=== PATIENT | male | born 2000 | race African-American/Black ===

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

== ENCOUNTER 2023-07-27 11:51 | Emergency (ER) | payer MEDICAID, OTHER ==
[~2023-07-27 11:51] MED LIST changes: +MONT4CHW74; -MONT4CHW9
== END 2023-07-27 13:58 | disposition left against medical advice (07) ==
LOC: ER 11:51
DX: R06.02 Shortness of breath (principal); Z53.21 Procedure and treatment not carried out due to patient leaving prior to being seen by health care provider

== ENCOUNTER 2024-03-12 06:38 | Inpatient (IN) | payer MEDICAID, OTHER ==
[~2024-03-12] VITALS: Ht 172.7 cm; Wt 74.0 kg
[2024-03-12] VITALS (14 sets, daily range): BP systolic 114–134; BP diastolic 60–82; PULSE 24–145; RESP 15–95; TEMP 98.2–99; O2SAT 91–99
--- NOTE | 2024-03-12 06:44 | ED.PDOC ---
SOB-HPI HPI Comments 29M BIBA w/ prior Hx of asthma which may be associated to the c/c of SOB. EMS report the pt has been having SOB since yesterday and worsened today. EMS state the pt does having a machoine at home but is not helping. Pt on scene had a SAT of 92% RA and was given a breathing Trx en rout and is currently at 95%. EMS note the pt having wheezing sounds on both lungs. Social Hx of Second hand on tobacco but denies alcohol and substance use. Denies chills, fever, N/V/D, CP or other associated symptoms, modifiers, or recent injuries at this time. Time Seen by MD: 06:40 Primary Care Provider: LUIS ANGEL Reviewed notes: Nurses Notes, Dry House Attendant Notes, Medications, Allergies Information Source: Patient, Emergency Med Personnel Mode of Arrival: EMS Severity: Moderate Timing: Hours Duration: Since onset, Hours Context: At Rest PE Risk Factors: None History of: Asthma Prehospital treatment: Breathing Tx Associated Signs and Symptoms: Wheeze If cough with SOB: Non-Productive Past Medical History PAST MEDICAL HISTORY: Asthma Surgical History: Denies all surgeries Family History Family History: No family hx of Lung avril, Unknown Social History Smoker: Secondhand Alcohol: Denies ETOH Use Drugs: Denies Drug Use Lives In: Home Constitutional: denies: chills, diaphoresis, fatigue, fever, malaise, sweats, weakness, others EENTM: denies: blurred vision, double vision, ear bleeding, ear discharge, ear drainage, ear pain, ear ringing, eye pain, eye redness, hearing loss, mouth pain, mouth swelling, nasal discharge, nose bleeding, nose congestion, nose pain, photophobia, tearing, throat pain, throat swelling, voice changes, others Respiratory: reports: SOB at rest, shortness of breath, wheezing; denies: cough, hemoptysis, orthopnea, SOB with excertion, stridor, others Cardiovascular: denies: chest pain, dizzy spells, diaphoresis, Dyspnea on exertion, edema, irregular heart beat, left arm pain, lightheadedness, palpitations, PND, syncope, others Gastrointestinal: denies: abdomen distended, abdominal pain, blood streaked bowels, constipated, diarrhea, dysphagia, difficulty swallowing, hematemesis, melena, nausea, poor appetite, poor fluid intake, rectal bleeding, rectal pain, vomiting, others Genitourinary: denies: burning, dysuria, flank pain, frequency, hematuria, incontinence, penile discharge, penile sore, pain, testicle pain, testicle swelling, urgency, others Neurological: denies: dizziness, fainting, headache, left sided numbness, left sided weakness, numbness, paresthesia, pre-existing deficit, right sided numbness, right sided weakness, seizure, speech problems, tingling, tremors, weakness, others Musculoskeletal: denies: back pain, gout, joint pain, joint swelling, muscle pain, muscle stiffness, neck pain, others Integumetry: denies: bruises, change in color, change in hair/nails, dryness, laceration, lesions, lumps, rash, wounds, others Allergic/Immunocompromised: denies: Difficulty Healing, Frequent Infections, Hives, Itching, others Hematologic/Lymphatic: denies: anemia, blood clots, easy bleeding, easy bruising, swollen glands, others Endocrine: denies: excessive hunger, excessive sweating, excessive thirst, excessive urination, flushing, intolerance to cold, intolerance to heat, unexplained weight gain, unexplained weight loss, others Psychiatric: denies: anxiety, bipolar disorder, depression, hopeless, panic disorder, schizophrenia, sleepless, suicidal, others All Other Systems: Reviewed and Negative Physical Exam General Appearance: Moderate Distress HEENT: Normal ENT Inspection, Pharynx Normal, TMs Normal Neck: Full Range of Motion, Non-Tender, Normal, Normal Inspection Respiratory: Chest Non-Tender, Decreased Breath Sounds, Lungs Clear, No Accessory Muscle Use, Respiratory Distress, Wheezing Cardiovascular: No Edema, No JVD, No Murmur, No Gallop, Tachycardia Breast Exam: Deferred Gastrointestinal: No Organomegaly, Non Tender, No Pulsatile Mass, Normal Bowel Sounds, Soft Genitalia: Deferred Pelvic: Deferred Rectal: Deferred Extremities: No calf tenderness, Normal capillary refill, Normal inspection, Normal range of motion, Non-tender, No pedal edema Musculoskeletal : Apperance: Normal Neurologic: Alert, technology architect II-XII nml as Tested, No Motor Deficits, Normal Affect, Normal Mood, No Sensory Deficits Cerebellar Function: Normal Reflexes: Normal Skin: Dry, Normal Color, Warm Lymphatic: No Adenopathy Was a procedure done? Was a procedure done?: No Differential Dx Differential Diagnosis: Asthma, Bronchitis, Pneumonia X-Ray, Labs, Meds, VS Vital Signs Date Time Temp Pulse Resp B/P (MAP) Pulse Ox O2 Delivery O2 Flow Rate FiO2 03/12/24 10:14 22 94 Room Air* 0 21 03/12/24 07:55 146 03/12/24 07:49 24 24 98 Nasal Cannula* 2 28 03/12/24 07:49 152 24 123/57 (79) 97 03/12/24 07:33 24 94 Nasal Cannula* 2 28 03/12/24 07:01 22 100 Simple Mask* 8 60 03/12/24 06:51 98.2 132 26 124/57 (79) 97 Lab Test 03/12/24 07:50 03/12/24 06:55 Range/Units Influenza Type A Antigen Negative Negative Influenza Type B Antigen Negative Negative SARS-CoV-2 Antigen (Rapid) Negative NEGATIVE White Blood Count 6.8 4.4-10.8 10^3/uL Red Blood Count 5.05 4.5-5.90 10^6/uL Hemoglobin 15.5 13.5-17.5 g/dL Hematocrit 45.4 41.0-53.0 % Mean Corpuscular Volume 89.8 80.0-100.0 fL Mean Corpuscular Hemoglobin 30.8 28.0-32.0 pg Mean Corpuscular Hemoglobin Concent 34.3 32.0-36.0 g/dL Red Cell Distribution Width 13.4 11.8-14.3 % Platelet Count 279 140-450 10^3/uL Mean Platelet Volume 7.9 6.9-10.8 fL Neutrophils (%) (Auto) 90.9 H 37.0-80.0 % Lymphocytes (%) (Auto) 5.2 L 10.0-50.0 % Monocytes (%) (Auto) 3.4 0.0-12.0 % Eosinophils (%) (Auto) 0.1 0.0-7.0 % Basophils (%) (Auto) 0.4 0.0-2.0 % Neutrophils # (Auto) 6.2 1.6-8.6 10 ^3/uL Lymphocytes # (Auto) 0.4 0.4-5.4 10 ^3/uL Monocytes # (Auto) 0.2 0-1.3 10 ^3/uL Eosinophils # (Auto) 0 0-0.8 10 ^3/uL Basophils # (Auto) 0 0-0.2 10 ^3/uL Nucleated Red Blood Cells 0.2 % Sodium Level 139 136-145 mmol/L Potassium Level 3.5 3.5-5.1 mmol/L Chloride Level 106 98-107 mmol/L Carbon Dioxide Level 19 L 20-31 mmol/L Anion Gap 14 5-15 Blood Urea Nitrogen 12 9-23 mg/dL Creatinine 1.20 0.700-1.30 mg/dL Glomerular Filtration Rate Calc 88 >90 mL/min BUN/Creatinine Ratio 10.0 10.0-20.0 Serum Glucose 167 H 74-106 mg/dL Calcium Level 10.1 8.7-10.4 mg/dL Current Medications Medications (Trade) Dose Ordered Sig/An Route Start Time Stop Time Status Last Admin Methylprednisolone Sodium Succinate (Solu Medrol) 125 mg ONCE ONCE IV 03/12/24 06:45 03/12/24 06:46 DC 03/12/24 07:10 Ipratropium [place] (Atrovent Medneb) 1 mg ONCE ONCE N 03/12/24 06:45 03/12/24 06:46 DC 03/12/24 07:01 Albuterol (Ventolin Medneb) 10 mg ONCE ONCE N 03/12/24 06:45 03/12/24 06:46 DC 03/12/24 07:01 Albuterol (Ventolin Medneb) 10 mg ONCE ONCE NEB 03/12/24 07:28 03/12/24 07:29 DC 03/12/24 07:33 Magnesium Sulfate/ Dextrose 100 ml @ 100 mls/hr Q1H IV 03/12/24 07:30 03/12/24 09:29 DC 03/12/24 09:24 Ondansetron HCl (Zofran) 4 mg ONCE ONCE IV 03/12/24 08:00 03/12/24 08:01 DC 03/12/24 08:08 Albuterol (Ventolin Medneb) 20 mg ONCE ONCE NEB 03/12/24 10:00 03/12/24 10:01 DC 03/12/24 10:14 IV Hep-Lock was established The patient was given Solu-Medrol 125 mg IV push The patient was given a continuous breathing treatment of albuterol and Atrovent with no significant relief. The patient was then started on Mag sulfate. The patient has a repeat albuterol and Atrovent placed. The CBC is within normal limits The chemistry panel is within normal limits The COVID test is negative The influenza a and influenza B are negative At this time, the patient was being admitted to the hospitalist The patient was having a significant amount of shortness a breath but he is making some progress. Patient was admitted at this time. Images Reviewed?: Images reviewed and evaluated by me Time of 1ST Reevaluation: 07:10 Reevaluation 1ST: Unchanged Patient Education/Counseling: Diagnosis, Treatment, Prognosis Family Education/Counseling: No Family Present Departure 1 Departure Time of Disposition: 10:36 Impression: Primary Impression: Status asthmaticus Qualified Codes: J45.52 - Severe persistent asthma with status asthmaticus Additional Impression: Acute respiratory failure Qualified Codes: J96.00 - Acute respiratory failure, unspecified whether with hypoxia or hypercapnia Disposition: ADMITTED INPATIENT Admit to: Tele Condition: Fair Critical Care Note Critical Care Time?: Yes (35 min-critical care time only) Stability Stability form required: Yes Unstable for transfer: Telemetry monitoring (Telemetry monitoring required), ED Physician Assesment (Clinical assesment) Heart Score Heart Score: Heart Score Response (Comments) Value History N/A 0 EKG N/A 0 Age N/A 0 Risk Factors N/A 0 Troponin N/A 0 Total 0 I personally scribed for SHON LEO MD ([email or web address]) on 03/12/24 at 06:44. Electronically submitted by Huy Magaña ([email or web address]). SHON LEO MD Mar 12, 2024 06:44
[2024-03-12] MEDS: IPRATROPIUM BROM 0.5 MG/2.5ML INH SOL HHN ONE (07:01)
[2024-03-12] MEDS: ALBUTEROL SULF 2.5 MG/0.5ML(0.5%) NEB SOLN HHN ONE (07:01)
[2024-03-12 07:04] LABS: Basophils # (auto) 0 10 ^3/uL (0-0.2); Basophils % (auto) 0.4 % (0.0-2.0); Eosinophils # (auto) 0 10 ^3/uL (0-0.8); Eosinophils % (auto) 0.1 % (0.0-7.0); Hematocrit 45.4 % (41.0-53.0); Hemoglobin 15.5 g/dL (13.5-17.5); Lymphocytes # (auto) 0.4 10 ^3/uL (0.4-5.4); Lymphocytes % (auto) 5.2 % (10.0-50.0); Mean Corpuscular Hemoglobin 30.8 pg (28.0-32.0); Mean Corpuscular Hgb Conc. 34.3 g/dL (32.0-36.0); Mean Corpuscular Volume 89.8 fL (80.0-100.0); Monocytes # (auto) 0.2 10 ^3/uL (0-1.3); Monocytes % (auto) 3.4 % (0.0-12.0); Neutrophils # (auto) 6.2 10 ^3/uL (1.6-8.6); Neutrophils % (auto) 90.9 % (37.0-80.0); Nucleated Red Blood Cells % 0.2 %; Platelet Count (auto) 279 10^3/uL (140-450); Red Blood Cells 5.05 10^6/uL (4.5-5.90); Red Cell Distribution Width 13.4 % (11.8-14.3); White Blood Cell 6.8 10^3/uL (4.4-10.8)
[2024-03-12] MEDS: methylPREDNISolone SOD SUCC 125 MG/2 ML VL IV ONE (07:10)
[2024-03-12 07:15] LABS: Chloride 106 mmol/L (98-107); Potassium 3.5 mmol/L (3.5-5.1); Sodium 139 mmol/L (136-145)
[2024-03-12 07:16] LABS: Anion Gap 14 (5-15); Calcium 10.1 mg/dL (8.7-10.4); Carbon Dioxide 19 mmol/L (20-31)
[2024-03-12 07:21] LABS: Blood Urea Nitrogen 12 mg/dL (9-23); Glucose 167 mg/dL (74-106)
[2024-03-12] MEDS ORDERED: ALBUTEROL SULF 2.5 MG/0.5ML(0.5%) NEB SOLN HHN ONE (07:30)
[2024-03-12] MEDS: ALBUTEROL SULF 2.5 MG/0.5ML(0.5%) NEB SOLN NEB ONE ×2 (07:33→10:14)
[2024-03-12] MEDS: ALBUTEROL SULF 2.5 MG/0.5ML(0.5%) NEB SOLN ONE (07:34)
[2024-03-12] MEDS: MAGNESIUM SULFATE 1GM/100ML 100 ML IV SCH (08:03)
[2024-03-12] MEDS: ONDANSETRON HCL 4 MG/2 ML VIAL IV ONE (08:08)
[2024-03-12 08:57] LABS: Rapid Influenza A Negative (Negative); Rapid Influenza B Negative (Negative)
[2024-03-12 08:58] LABS: COVID19 ANTIGEN SOFIA FIA NEGATIVE (NEGATIVE)
[2024-03-12] MEDS ORDERED: IPRATROPIUM BROM 0.5 MG/2.5ML INH SOL NEB PRN (10:15)
--- NOTE | 2024-03-12 10:21 | DVH ---
CHEST RADIOGRAPH Indication:sob Technique: Single frontal view of the chest was obtained COMPARISON: None FINDINGS: Lines and Tubes: None Lungs: Clear Pleura: No effusion. No pneumothorax. Cardiomediastinal contours: Unremarkable Bones: Unremarkable IMPRESSION: 1. No acute disease.
--- NOTE | 2024-03-12 10:22 | DVHHP2 ---
History of Present Illness Reason for Visit: Shortness of breath History of Present Illness This 29-year-old male with past medical history of asthma presents in the ED via EMS with a chief complaint of shortness of breath. Patient reports progressive shortness of breath started two days ago, despite of breathing treatment continued to have shortness of breath for which prompted the patient to call 911. The patient reports symptoms is associated with productive cough. Denies fever, chills, chest pain, or other acute symptoms. Denies tobacco, illicit drug, or ETOH use. Past Medical History Asthma Past Surgical History Denies Family History Reviewed, non-contributory to the management of this case. Past Social History The patient lives at home, denies smoking, alcohol or illicit drugs abuse. Review of Systems Constitutional: Yes: Malaise; No: Fever, Chills, Sweats, Weakness, Other Eyes: No: Pain, Vision change, Conjunctivae inflammation, Eyelid inflammation, Other, Redness ENT: No: Ear pain, Ear discharge, Nose pain, Nose discharge, Nose congestion, Mouth pain, Mouth swelling, Throat pain, Throat swelling, Other Respiratory: Cough, Shortness of breath, Wheezing; No: Dry, SOB with excertion, Hemoptysis, Pleuritic Pain, Sputum, Wheezing, Other Cardiovascular: No: Chest Pain, Palpitations, Orthopnea, Paroxysmal Noc. Dyspnea, Edema, Lt Headedness, Other Genitourinary: No Dysuria, No Frequency, No Incontinence, No Hematuria, No Retention, No Other Musculoskeletal: No: other, neck pain, shoulder pain, arm pain, back pain, hand pain, leg pain, foot pain Skin: No: Rash, Lesions, Jaundice, Bruising, Other Neurological: No: Weakness, Numbness, Incoordination, Change in speech, Confusion, Seizures, Other Allergies: Coded Allergies: Tomato (Verified Allergy, Unknown, 09/11/20) Exam Vital Signs Vital Signs Date Time Temp Pulse Resp B/P (MAP) Pulse Ox O2 Delivery O2 Flow Rate FiO2 03/12/24 07:55 146 03/12/24 07:49 24 98 Nasal Cannula* 2 28 03/12/24 07:49 123/57 (79) 03/12/24 06:51 98.2 General Appearance: Alert, Oriented X3, mild distress HEENT: Atraumatic, PERRLA, EOMI Respiratory: Other (Wheezing) Cardiovascular: Regular rate, Normal S1, Normal S2 Abdominal: Normal bowel sounds, Soft, No tenderness Extremities: No clubbing, No cyanosis, No edema, Normal pulses Skin: No rashes, No breakdown, No significant lesion Neuro: Normal gait, Normal speech, Strength at 5/5 X4 ext, Normal tone Psych/Mental Status: Mental status NL Labs/Xrays Labs Test 03/12/24 07:50 03/12/24 06:55 Range/Units Influenza Type A Antigen Negative Negative Influenza Type B Antigen Negative Negative SARS-CoV-2 Antigen (Rapid) Negative NEGATIVE White Blood Count 6.8 4.4-10.8 10^3/uL Red Blood Count 5.05 4.5-5.90 10^6/uL Hemoglobin 15.5 13.5-17.5 g/dL Hematocrit 45.4 41.0-53.0 % Mean Corpuscular Volume 89.8 80.0-100.0 fL Mean Corpuscular Hemoglobin 30.8 28.0-32.0 pg Mean Corpuscular Hemoglobin Concent 34.3 32.0-36.0 g/dL Red Cell Distribution Width 13.4 11.8-14.3 % Platelet Count 279 140-450 10^3/uL Mean Platelet Volume 7.9 6.9-10.8 fL Neutrophils (%) (Auto) 90.9 H 37.0-80.0 % Lymphocytes (%) (Auto) 5.2 L 10.0-50.0 % Monocytes (%) (Auto) 3.4 0.0-12.0 % Eosinophils (%) (Auto) 0.1 0.0-7.0 % Basophils (%) (Auto) 0.4 0.0-2.0 % Neutrophils # (Auto) 6.2 1.6-8.6 10 ^3/uL Lymphocytes # (Auto) 0.4 0.4-5.4 10 ^3/uL Monocytes # (Auto) 0.2 0-1.3 10 ^3/uL Eosinophils # (Auto) 0 0-0.8 10 ^3/uL Basophils # (Auto) 0 0-0.2 10 ^3/uL Nucleated Red Blood Cells 0.2 % Sodium Level 139 136-145 mmol/L Potassium Level 3.5 3.5-5.1 mmol/L Chloride Level 106 98-107 mmol/L Carbon Dioxide Level 19 L 20-31 mmol/L Anion Gap 14 5-15 Blood Urea Nitrogen 12 9-23 mg/dL Creatinine 1.20 0.700-1.30 mg/dL Glomerular Filtration Rate Calc 88 >90 mL/min BUN/Creatinine Ratio 10.0 10.0-20.0 Serum Glucose 167 H 74-106 mg/dL Calcium Level 10.1 8.7-10.4 mg/dL Assessment/Plan Assessment/Plan # acute asthma exacerbation # acute on chronic respiratory failure # wheezing Admit to medical DuoNeb Q4h Steroids O2 supplement Mag given in ED Pulmonary consult for uncontrolled asthma, currently on QVAR, montelukast Chest x-ray pending Medical plan discussed with patient and RN Plan discussed with: Patient My Orders Orders - EDGAR BREEN Procedure Category Date Status Time Admit ADMIT 03/12/24 Transmitted 10:10 Code Status CODE 03/12/24 Transmitted 10:10 Complete Blood Count LAB 03/13/24 Verified 04:00 Comprehensive LAB 03/13/24 Verified Metabolic Panel 04:00 Cardiac DIET 03/12/24 Transmitted Diet-2gna,Lofat,Lochol Lunch Condition: Fair PRACHI 03/12/24 Transmitted 10:10 Albuterol Medneb PHA 03/12/24 Transmitted (Ventolin Medneb) 10:15 Albuterol Medneb PHA 03/12/24 Transmitted (Ventolin Medneb) 14:00 Ipratropium Medneb PHA 03/12/24 Transmitted (Atrovent Medneb) 10:15 Ipratropium Medneb PHA 03/12/24 Transmitted (Atrovent Medneb) 14:00 Methylprednisolone PHA 03/12/24 Transmitted Sod Succ (Solu Medrol 14:00 *Consult Dr Trang De La Cruz CONS 03/12/24 Transmitted 10:10 Date of Service: Mar 12, 2024 Billing Provider: EDGAR BREEN Common Visit Codes: [id number] INP/OBS CARE (HIGH) EDGAR BREEN Mar 12, 2024 10:22
[2024-03-12] MEDS: methylPREDNISolone SOD SUCC 40 MG/ML VL IV SCH (13:16)
[2024-03-12] MEDS: IPRATROPIUM BROM 0.5 MG/2.5ML INH SOL NEB SCH (14:24)
[2024-03-12] MEDS: ALBUTEROL SULF 2.5 MG/0.5ML(0.5%) NEB SOLN NEB SCH (14:24)
--- NOTE | 2024-03-12 21:41 | DVHINCON2 ---
Date of service: Mar 12, 2024 Referring Physician Brandie Kenny NP Reason for Consultation Acute hypoxic respiratory failure and asthma exacerbation History of Present Illness This is a 23-year-old man with past medical history of asthma who presents to the ED via EMS with a chief complaint of shortness of breath. Patient reports progressive SOB starting 2 days ago, despite breathing treatment continued to have shortness of breath which prompted the patient to call 911. Also notes productive cough. Denies fever, chills, chest pain, or other acute symptoms. Patient was admitted for further care and pulmonary consultation is requested for evaluation and management of acute hypoxic respiratory failure and asthma exacerbation. Review of Systems: 14-point review of systems negative unless otherwise noted above. Past Medical History: Asthma Past Surgical History: Denies. Medications: Reviewed. Allergies: Tomato. Family History: No family history of premature CAD. No family history of lung disorders. Social History: Nonsmoker. No alcohol or illicit drug use. Family History: Patient reports no known family medical history. Allergies: Coded Allergies: Tomato (Verified Allergy, Unknown, 09/11/20) Home Meds Reported Medications Levalbuterol Hydrochloride (Xopenex) 0.31 Mg Neb 08/27/10 Montelukast Sodium (Singulair) 4 Mg Chw 08/27/10 Beclomethasone Dipropionate (Qvar) 80 Mcg Aer 08/27/10 Albuterol (Albuterol) Pow 08/27/10 Current Medications Current Medications Medications (Trade) Dose Ordered Sig/An Route PRN Reason Start Time Stop Time Status Last Admin Magnesium Sulfate/ Dextrose 100 ml @ 100 mls/hr Q1H IV 03/12/24 07:30 03/12/24 09:29 DC 03/12/24 09:24 Albuterol (Ventolin Medneb) 2.5 mg Q4HPRN PRN NEB SHORTNESS OF BREATH 03/12/24 10:15 Albuterol (Ventolin Medneb) 2.5 mg Q4HR NEB 03/12/24 14:00 03/12/24 19:00 Ipratropium [place] (Atrovent Medneb) 0.5 mg Q4HPRN PRN NEB SHORTNESS OF BREATH 03/12/24 10:15 Ipratropium [place] (Atrovent Medneb) 0.5 mg Q4HR NEB 03/12/24 14:00 03/12/24 18:58 Methylprednisolone Sodium Succinate (Solu Medrol) 40 mg Q8HR IV 03/12/24 14:00 03/12/24 13:16 Vital Signs Vital Signs Date Time Temp Pulse Resp B/P (MAP) Pulse Ox O2 Delivery O2 Flow Rate FiO2 03/12/24 19:00 118 24 99 03/12/24 18:33 Nasal Cannula* 2 28 03/12/24 17:33 99.0 134/82 (99) 99.0 Physical Exam Gen.: Patient lying in bed in no apparent distress. On supplemental oxygen. Head: Normocephalic, atraumatic. Eyes: EOMI/PERRLA. Ears: Normal hearing. Normal anatomy. Neck/trachea: Trachea midline, supple. Nose: Normal external anatomy. Mouth: Moist mucous membranes. Chest: Decreased air entry bilaterally. No wheezing or rhonchi. Cardiovascular: Positive S1, positive S2. Regular rate and rhythm. Abdomen: Positive bowel sounds in all 4 quadrants. Soft, non-tender, non- distended. : Deferred. Rectal: Deferred. Skin: Warm, dry. Intact. Extremities: 2+ radial pulses bilaterally. No lower extremity edema. Neuro: Awake, alert, oriented x3. No gross motor or sensory deficits. Cranial nerves II through XII intact. Gait not assessed. Labs/Diagnostic Data Labs Test 03/12/24 07:50 03/12/24 06:55 Range/Units Influenza Type A Antigen Negative Negative Influenza Type B Antigen Negative Negative SARS-CoV-2 Antigen (Rapid) Negative NEGATIVE White Blood Count 6.8 4.4-10.8 10^3/uL Red Blood Count 5.05 4.5-5.90 10^6/uL Hemoglobin 15.5 13.5-17.5 g/dL Hematocrit 45.4 41.0-53.0 % Mean Corpuscular Volume 89.8 80.0-100.0 fL Mean Corpuscular Hemoglobin 30.8 28.0-32.0 pg Mean Corpuscular Hemoglobin Concent 34.3 32.0-36.0 g/dL Red Cell Distribution Width 13.4 11.8-14.3 % Platelet Count 279 140-450 10^3/uL Mean Platelet Volume 7.9 6.9-10.8 fL Neutrophils (%) (Auto) 90.9 H 37.0-80.0 % Lymphocytes (%) (Auto) 5.2 L 10.0-50.0 % Monocytes (%) (Auto) 3.4 0.0-12.0 % Eosinophils (%) (Auto) 0.1 0.0-7.0 % Basophils (%) (Auto) 0.4 0.0-2.0 % Neutrophils # (Auto) 6.2 1.6-8.6 10 ^3/uL Lymphocytes # (Auto) 0.4 0.4-5.4 10 ^3/uL Monocytes # (Auto) 0.2 0-1.3 10 ^3/uL Eosinophils # (Auto) 0 0-0.8 10 ^3/uL Basophils # (Auto) 0 0-0.2 10 ^3/uL Nucleated Red Blood Cells 0.2 % Sodium Level 139 136-145 mmol/L Potassium Level 3.5 3.5-5.1 mmol/L Chloride Level 106 98-107 mmol/L Carbon Dioxide Level 19 L 20-31 mmol/L Anion Gap 14 5-15 Blood Urea Nitrogen 12 9-23 mg/dL Creatinine 1.20 0.700-1.30 mg/dL Glomerular Filtration Rate Calc 88 >90 mL/min BUN/Creatinine Ratio 10.0 10.0-20.0 Serum Glucose 167 H 74-106 mg/dL Calcium Level 10.1 8.7-10.4 mg/dL Assessment Impression: Acute hypoxic respiratory failure Asthma exacerbation Dyspnea Wheezing Plan: Supplemental oxygen, 2 LPM NC Titrate to keep O2 sats above 92%. Taper O2 as tolerated. Continue bronchodilators. Steroids Incentive spirometry Monitor renal function. Monitor electrolytes. Supplement as necessary. Monitor ins and outs. DVT prophylaxis. Prognosis: Poor given patient's multiple co-morbidities. Rest of plan per hospitalist and other consultants. Thank you Brandie Kenny NP, for allowing me to participate in this patient's care. Further recommendations will depend on the patient's clinical course. Please do not hesitate to contact me if you have any questions or concerns. This medical document was created using an electronic medical record system with [employer] system. Although these documentations are being carefully reviewed, there may still be some phonetic and typographical changes. The errors are purely typographical, due to imperfection on the software program, and do not reflect any compromise in the patient's medical care. Plan discussed with: Other (ANIBAL Curran, PROJECT ACCOUNT MANAGER Zoya) MAXIMO MOORE MD Mar 12, 2024 21:41
[2024-03-13] VITALS (20 sets, daily range): BP systolic 125–143; BP diastolic 56–95; PULSE 76–110; RESP 17–23; TEMP 98.1–98.9; O2SAT 91–99
[2024-03-13 06:37] LABS: Basophils # (auto) 0 10 ^3/uL (0-0.2); Eosinophils # (auto) 0 10 ^3/uL (0-0.8); Hemoglobin 14.8 g/dL (13.5-17.5); Lymphocytes # (auto) 0.6 10 ^3/uL (0.4-5.4); Lymphocytes % (auto) 7.2 % (10.0-50.0); Mean Corpuscular Hemoglobin 30.6 pg (28.0-32.0); Mean Corpuscular Hgb Conc. 34.4 g/dL (32.0-36.0); Mean Corpuscular Volume 89.2 fL (80.0-100.0); Monocytes # (auto) 0.7 10 ^3/uL (0-1.3); Monocytes % (auto) 8.3 % (0.0-12.0); Neutrophils # (auto) 7.2 10 ^3/uL (1.6-8.6); Neutrophils % (auto) 84.5 % (37.0-80.0); Platelet Count (auto) 278 10^3/uL (140-450); Red Blood Cells 4.82 10^6/uL (4.5-5.90); Red Cell Distribution Width 13.4 % (11.8-14.3); White Blood Cell 8.5 10^3/uL (4.4-10.8)
[2024-03-13 06:57] LABS: Alanine Aminotransferase 28 U/L (7-40); Alkaline Phosphatase 65 U/L (46-116); Anion Gap 11 (5-15); BUN/Creatinine Ratio 10.7 (10.0-20.0); Blood Urea Nitrogen 12 mg/dL (9-23); Calcium 9.8 mg/dL (8.7-10.4); Carbon Dioxide 22 mmol/L (20-31); Chloride 107 mmol/L (98-107); Glucose 136 mg/dL (74-106); Potassium 4.4 mmol/L (3.5-5.1); Sodium 140 mmol/L (136-145)
[2024-03-13 06:58] LABS: Albumin 4.4 g/dL (3.2-4.8); Aspartate Aminotransferase 17 U/L (13-40); Bilirubin, Total 0.7 mg/dL (0.2-1.0); Total Protein 7.4 g/dL (5.7-8.2)
--- NOTE | 2024-03-13 13:08 | DVHDSRES ---
Discharge Summary Date of Admission Resident Creating Document: PRAMOD MEDEROS RESIDENT Mar 12, 2024 at 10:10 Date of Discharge: Mar 13, 2024 Admitting Diagnosis Asthma exacerbation Acute hypoxic respiratory failure Labs/Diagnostic Data: Laboratory Results Test 03/13/24 05:41 03/12/24 07:50 White Blood Count 8.5 10^3/uL (4.4-10.8) Red Blood Count 4.82 10^6/uL (4.5-5.90) Hemoglobin 14.8 g/dL (13.5-17.5) Hematocrit 43.0 % (41.0-53.0) Mean Corpuscular Volume 89.2 fL (80.0-100.0) Mean Corpuscular Hemoglobin 30.6 pg (28.0-32.0) Mean Corpuscular Hemoglobin Concent 34.4 g/dL (32.0-36.0) Red Cell Distribution Width 13.4 % (11.8-14.3) Platelet Count 278 10^3/uL (140-450) Mean Platelet Volume 8.0 fL (6.9-10.8) Neutrophils (%) (Auto) 84.5 % (37.0-80.0) Lymphocytes (%) (Auto) 7.2 % (10.0-50.0) Monocytes (%) (Auto) 8.3 % (0.0-12.0) Eosinophils (%) (Auto) 0.0 % (0.0-7.0) Basophils (%) (Auto) 0.0 % (0.0-2.0) Neutrophils # (Auto) 7.2 10 ^3/uL (1.6-8.6) Lymphocytes # (Auto) 0.6 10 ^3/uL (0.4-5.4) Monocytes # (Auto) 0.7 10 ^3/uL (0-1.3) Eosinophils # (Auto) 0 10 ^3/uL (0-0.8) Basophils # (Auto) 0 10 ^3/uL (0-0.2) Nucleated Red Blood Cells 0.0 % Sodium Level 140 mmol/L (136-145) Potassium Level 4.4 mmol/L (3.5-5.1) Chloride Level 107 mmol/L (98-107) Carbon Dioxide Level 22 mmol/L (20-31) Anion Gap 11 (5-15) Blood Urea Nitrogen 12 mg/dL (9-23) Creatinine 1.12 mg/dL (0.700-1.30) Glomerular Filtration Rate Calc 96 mL/min (>90) BUN/Creatinine Ratio 10.7 (10.0-20.0) Serum Glucose 136 mg/dL (74-106) Calcium Level 9.8 mg/dL (8.7-10.4) Total Bilirubin 0.7 mg/dL (0.2-1.0) Aspartate Amino Transferase (AST) 17 U/L (13-40) Alanine Aminotransferase (ALT) 28 U/L (7-40) Alkaline Phosphatase 65 U/L (46-116) Total Protein 7.4 g/dL (5.7-8.2) Albumin 4.4 g/dL (3.2-4.8) Influenza Type A Antigen Negative (Negative) Influenza Type B Antigen Negative (Negative) SARS-CoV-2 Antigen (Rapid) Negative (NEGATIVE) Other Laboratory Tests 03/13/24 05:41 Condition at Discharge: Stable Discharge Disposition: Home Discharge Instruct/Medications Diet: Regular Activity: No Restrictions, As Tolerated Discharge Statement: "Patient was advised to return to the ER or call 911 if any headaches, dizziness, shortness of breath, chest pain, abdominal pain, bleeding, fevers, or worsening of medical condition. Patient was counseled about treatment plan, medications, possible side effects, patientverbalized understanding. All questions were answered to the best of my ability. This discharge took greater then 30 minutes in planning, reviewing documentation, counseling the patient, and discussing with other team members." ASSESSMENT ASSESSMENT Assessment PRAMOD MEDEROS RESIDENT Mar 13, 2024 13:08
--- NOTE | 2024-03-13 18:13 | DVHPNRES ---
Progress Note Date Seen: Mar 13, 2024 Resident Creating Document: PRAMOD MEDEROS RESIDENT Has the PT tested + for MRSA If YES, has PT been informed?: No Medical Necessity Reason Pt with a Central, PICC or Fol: No Subjective Review of Systems This is 23-year-old male with past medical history of asthma who presented to the ED via EMS with a chief complaint of shortness of breath. Patient reported progressive shortness despite using his rescue inhaler. With the persistent symptoms, patient decided to come to the ED for further evaluation and treatment. The patient reported symptom is associated with productive cough. According to the patient, he was last admitted 2 months ago for similar clinical scenario. And he also mentioned that he uses his rescue inhaler daily beclomethasone daily. Patient has not seen a miller head assistant wet process ever and he currently does not have a PCP. Denies fever, chills, chest pain, or other acute symptoms. Denies tobacco, illicit drug, or ETOH use. In the ED, his respiratory rate was 26 cpm, HR: 132. Received 8L of oxygen via simple mask. Past Medical History:Asthma Past Surgical History:Denies Family History:Reviewed, non-contributory to the management of this case. Past Social History:The patient lives at home, denies smoking, alcohol or illicit drugs abuse. Review of Systems Constitutional: Yes: Malaise; No: Fever, Chills, Sweats, Weakness, Other Eyes: No: Pain, Vision change, Conjunctivae inflammation, Eyelid inflammation, Other, Redness ENT: No: Ear pain, Ear discharge, Nose pain, Nose discharge, Nose congestion, Mouth pain, Mouth swelling, Throat pain, Throat swelling, Other Respiratory: Cough, Shortness of breath, Wheezing; No: Dry, SOB with exertion, Hemoptysis, Pleuritic Pain, Sputum, Wheezing, Other Cardiovascular: No: Chest Pain, Palpitations, Orthopnea, PND. Dyspnea, Edema, Lt Headedness, Other Genitourinary: No Dysuria, No Frequency, No Incontinence, No Hematuria, No Retention, No Other Musculoskeletal: No: other, neck pain, shoulder pain, arm pain, back pain, hand pain, leg pain, foot pain Skin: No: Rash, Lesions, Jaundice, Bruising, Other Neurological: No: Weakness, Numbness, Incoordination, Change in speech, Confusion, Seizures, Other Allergies: Coded Allergies: Tomato (Verified Allergy, Unknown, 09/11/20) Objective vital signs Vital Sign Date Time Temp Pulse Resp B/P (MAP) Pulse Ox O2 Delivery O2 Flow Rate FiO2 03/13/24 17:00 98.1 110 20 133/95 (108) 98 98.1 03/13/24 15:00 Room Air 0.0 03/13/24 15:00 21 Total Intake and Output 03/12/24 03/12/24 03/13/24 15:00 23:00 07:00 Intake Total 200 ml 1182 ml Balance 200 ml 1182 ml medications Current Medications Medications Dose Ordered Sig/An Route Start Time Stop Time Status Last Admin Dose Admin Albuterol 2.5 mg Q4HPRN PRN NEB 03/12/24 10:15 Albuterol 2.5 mg Q4HR NEB 03/12/24 14:00 03/13/24 15:00 2.5 MG Ipratropium [place] 0.5 mg Q4HPRN PRN NEB 03/12/24 10:15 Ipratropium [place] 0.5 mg Q4HR NEB 03/12/24 14:00 03/13/24 15:00 0.5 MG Methylprednisolone Sodium Succinate 40 mg Q8HR IV 03/12/24 14:00 03/13/24 14:17 40 MG Azithromycin 250 ml @ 125 mls/hr DAILY IV 03/14/24 10:00 Examination General examination- not in acute distress, however he was coughing a bit HEENT- PEERLA, no acute nasal discharge Cardiovascular- S1-S2 audible, rate and rhythm regular, no murmur Respiratory- Cough,mild crackles and wheezing Gastrointestinal-no abdominal tenderness, lower abdominal tenderness, bowel sound+. Nondistended Musculoskeletal-no acute joint swelling or tenderness or redness# Lower extremity- no leg edema Neurological- cranial nerves intact, no acute dysarthria or dysphagia Psychiatry- denies depression or SI or HI Skin- no acute rash or purpura laboratory and microbiology Laboratory Tests 03/13/24 05:41 Test 03/13/24 05:41 Range/Units Serum Glucose 136 H 74-106 mg/dL Problem List/Assessment/Plan Problem List/Assessment/Plan Acute asthma exacerbation --> Continue methylprednisolone --> Albuterol bromide --> Ipratropium --> Recommended follow up with miller head assistant wet process upon discharge Acute hypoxic respiratory failure--resolved --> Currently on RA --> Monitoring closely for any signs of decompensation Atypical pneumonia vs viral pneumonia --> Cough --> Start Azithromycin Dyspnea--> improved Goal of care discussed for more than 19 minute Case plan discussed with Dr. Anguiano Plan discussed with: Patient, Other (girlfriend) My Orders My Orders Orders - PRAMOD MEDEROS Procedure Category Date Status Time Schedule For Dc PRACHI 03/13/24 In Process Clinic F/U 13:01 Azithromycin 500mg/ PHA 03/14/24 In Process 250ml (Zithromax 50 10:00 Date of Service: Mar 13, 2024 Billing Provider: EDOUARD TRUJILLO MD Common Visit Codes: [id number] INP/OBS CARE(HIGH) PRAMOD MEDEROS Mar 13, 2024 18:13 EDOUARD TRUJILLO MD Mar 15, 2024 23:00
--- NOTE | 2024-03-13 23:16 | DVHPN2 ---
Progress Note - Dictate Date Seen: Mar 13, 2024 Has the PT tested + for MRSA If YES, has PT been informed?: No Medical Necessity Reason Pt with a Central, PICC or Fol: No Subjective Patient seen and examined at bedside. Breathing comfortably on room air. Overnight events reviewed. vital signs Vital Sign Date Time Temp Pulse Resp B/P (MAP) Pulse Ox O2 Delivery O2 Flow Rate FiO2 03/13/24 22:47 106 20 98 03/13/24 22:42 Room Air 0.0 03/13/24 22:42 21 03/13/24 21:00 98.9 130/78 (95) 98.9 Total Intake and Output 03/12/24 03/12/24 03/13/24 15:00 23:00 07:00 Intake Total 200 ml 1182 ml Balance 200 ml 1182 ml medications Current Medications Medications Dose Ordered Sig/An Route Start Time Stop Time Status Last Admin Dose Admin Albuterol 2.5 mg Q4HPRN PRN NEB 03/12/24 10:15 Albuterol 2.5 mg Q4HR NEB 03/12/24 14:00 03/13/24 22:41 2.5 MG Ipratropium [place] 0.5 mg Q4HPRN PRN NEB 03/12/24 10:15 Ipratropium [place] 0.5 mg Q4HR NEB 03/12/24 14:00 03/13/24 22:41 0.5 MG Methylprednisolone Sodium Succinate 40 mg Q8HR IV 03/12/24 14:00 03/13/24 21:26 40 MG Azithromycin 250 ml @ 125 mls/hr DAILY IV 03/14/24 10:00 objective Gen.: Patient lying in bed in no apparent distress. Breathing on room air. Head: Normocephalic, atraumatic. Eyes: EOMI/PERRLA. Ears: Normal hearing. Normal anatomy. Neck/trachea: Trachea midline, supple. Nose: Normal external anatomy. Mouth: Moist mucous membranes. Chest: Decreased air entry bilaterally. No wheezing or rhonchi. Cardiovascular: Positive S1, positive S2. Regular rate and rhythm. Abdomen: Positive bowel sounds in all 4 quadrants. Soft, non-tender, non- distended. : Deferred. Rectal: Deferred. Skin: Warm, dry. Intact. Extremities: 2+ radial pulses bilaterally. No lower extremity edema. Neuro: Awake, alert, oriented x3. No gross motor or sensory deficits. Cranial nerves II through XII intact. Gait not assessed. laboratory and microbiology Laboratory Tests 03/13/24 05:41 Test 03/13/24 05:41 Range/Units Serum Glucose 136 H 74-106 mg/dL Assessment/Plan Impression: Acute hypoxic respiratory failure Asthma exacerbation Dyspnea Wheezing Events: Breathing on room air Improved O2 requirements. Continue bronchodilators Continue steroids Pt is feeling better. Labs and imaging reviewed. Rest of plan as noted below. Plan: Supplemental oxygen PRN Titrate to keep O2 sats above 92%. Continue bronchodilators. Steroids Incentive spirometry Monitor renal function. Monitor electrolytes. Supplement as necessary. Monitor ins and outs. DVT prophylaxis. Prognosis: Poor given patient's multiple co-morbidities. Rest of plan per hospitalist and other consultants. Thank you Brandie Kenny, DONA, for allowing me to participate in this patient's care. Further recommendations will depend on the patient's clinical course. Please do not hesitate to contact me if you have any questions or concerns. This medical document was created using an electronic medical record system with [employer] dictation system. Although these documentations are being carefully reviewed, there may still be some phonetic and typographical changes. The errors are purely typographical, due to imperfection on the software program, and do not reflect any compromise in the patient's medical care. Plan discussed with: Patient, Other (RN) MAXIMO MOORE MD Mar 13, 2024 23:16
[2024-03-14] VITALS (20 sets, daily range): BP systolic 126–138; BP diastolic 79–87; PULSE 76–116; RESP 16–22; TEMP 97.9–98.1; O2SAT 92–100
[2024-03-14] MEDS: AZITHROMYCIN 500MG/ 250ML 250 ML IV SCH (09:44)
[2024-03-14] MEDS: LEVALBUTEROL HCL 1.25 MG/3 ML NEB NEB SCH (13:49)
--- NOTE | 2024-03-14 15:28 | DVHPNRES ---
Progress Note Date Seen: Mar 14, 2024 Resident Creating Document: PRAMOD MEDEROS RESIDENT Has the PT tested + for MRSA If YES, has PT been informed?: No Medical Necessity Reason Pt with a Central, PICC or Fol: No Subjective Review of Systems Patient is seen and examined today. Lying in bed has nasal oxygen on 2L saturating at 92%. He still has mild intermittent cough. Review of systems Constitutional: Denies fever, chills or feeling of malaise HEENT: Denies headache, ear pain, ear discharges, or conjunctivitis, or nasal discharge Cardiovascular: Denies chest pain, palpitation, orthopnea, PND, pedal edema Respiratory: Mild intermittent cough, whitish-yellowish sputum production, no hemoptysis, GI: Denies abdominal pain, nausea, vomiting, diarrhea, hematemesis, hematochezia, : No frequency, no urgency, no hematuria, Endocrine endocrine no abdominal weight gain or weight loss, no feeling of hot flashes, Prashanth: Denies any easy bruising, bleeding disorders, epistaxis, Psych: No evidence of depression, bob, suicidal ideation Musculoskeletal: Denies joint pain or muscle weakness Objective vital signs Vital Sign Date Time Temp Pulse Resp B/P (MAP) Pulse Ox O2 Delivery O2 Flow Rate FiO2 03/14/24 13:56 76 16 98 03/14/24 13:49 Nasal Cannula 2.0 03/14/24 13:49 28 03/14/24 13:00 97.9 136/87 (103) 97.9 Total Intake and Output 03/13/24 03/13/24 03/14/24 15:00 23:00 07:00 Intake Total 120 ml 1200 ml 300 ml Balance 120 ml 1200 ml 300 ml medications Current Medications Medications Dose Ordered Sig/An Route Start Time Stop Time Status Last Admin Dose Admin Albuterol 2.5 mg Q4HPRN PRN NEB 03/12/24 10:15 Ipratropium [place] 0.5 mg Q4HPRN PRN NEB 03/12/24 10:15 Ipratropium [place] 0.5 mg Q4HR NEB 03/12/24 14:00 03/14/24 13:49 0.5 MG Methylprednisolone Sodium Succinate 40 mg Q8HR IV 03/12/24 14:00 03/14/24 14:24 40 MG Azithromycin 250 ml @ 125 mls/hr DAILY IV 03/14/24 10:00 03/14/24 09:44 125 MLS/HR Levalbuterol HCl 0.625 mg Q4HR NEB 03/14/24 14:00 03/14/24 13:49 0.625 MG Budesonide 0.25 mg BID NEB 03/14/24 22:00 Examination General examination- No obvious acute distress HEENT- PEERLA, no acute nasal discharge chest- S1-S2 audible, rate and rhythm regular, no murmur Lung - notable for mild wheezing still. Gastrointestinal- Non-distended, BS+, nontender Musculoskeletal-no acute joint swelling or tenderness or redness# Lower extremity- no leg edema Neurological- cranial nerves intact, no acute dysarthria or dysphagia Psychiatry- normal mood and affect Skin- no acute rash or purpura laboratory and microbiology Laboratory Tests 03/13/24 05:41 Test 03/13/24 05:41 Range/Units Serum Glucose 136 H 74-106 mg/dL Problem List/Assessment/Plan Problem List/Assessment/Plan Acute asthma exacerbation --> still wheezing --> Continue methylprednisolone --> Albuterol bromide/--> Ipratropium --> Budesonide added --> Recommended follow up with scooter mechanic upon discharge Acute hypoxic respiratory failure--resolved --> back on 2L of oxygen Atypical pneumonia vs viral pneumonia; more likely viral pneumonia --> Cough --> Continue Azithromycin Dyspnea Goal of care discussed for more than 19 minute. We will keep patient for another day and reassess him tomorrow. Case plan discussed with Dr. Anguiano Plan discussed with: Patient My Orders My Orders Orders - PRAMOD MEDEROS Procedure Category Date Status Time Regular Diet DIET 03/14/24 Transmitted Lunch Date of Service: Mar 14, 2024 Billing Provider: EDOUARD TRUJILLO MD Common Visit Codes: [id number] INP/OBS CARE(HIGH) PRAMOD MEDEROS Mar 14, 2024 15:28 EDOUARD TRUJILLO MD Mar 15, 2024 22:52
[2024-03-14] MEDS: BUDESONIDE (INHALATION) 0.5 MG/2 ML NEB NEB SCH (17:53)
[2024-03-14] MEDS: ALBUTEROL SULF 2.5 MG/0.5ML(0.5%) NEB SOLN NEB PRN (17:53)
--- NOTE | 2024-03-14 20:51 | DVHPN2 ---
Progress Note - Dictate Date Seen: Mar 14, 2024 Has the PT tested + for MRSA If YES, has PT been informed?: No Medical Necessity Reason Pt with a Central, PICC or Fol: No Subjective Patient seen and examined at bedside. On supplemental oxygen Overnight events reviewed. vital signs Vital Sign Date Time Temp Pulse Resp B/P (MAP) Pulse Ox O2 Delivery O2 Flow Rate FiO2 03/14/24 18:00 86 20 98 03/14/24 17:53 Room Air 0.0 03/14/24 17:53 21 03/14/24 17:00 98.1 132/87 (102) 98.1 Total Intake and Output 03/13/24 03/13/24 03/14/24 15:00 23:00 07:00 Intake Total 120 ml 1200 ml 300 ml Balance 120 ml 1200 ml 300 ml medications Current Medications Medications Dose Ordered Sig/An Route Start Time Stop Time Status Last Admin Dose Admin Albuterol 2.5 mg Q4HPRN PRN NEB 03/12/24 10:15 03/14/24 17:53 2.5 MG Ipratropium [place] 0.5 mg Q4HPRN PRN NEB 03/12/24 10:15 Ipratropium [place] 0.5 mg Q4HR NEB 03/12/24 14:00 03/14/24 17:53 0.5 MG Methylprednisolone Sodium Succinate 40 mg Q8HR IV 03/12/24 14:00 03/14/24 14:24 40 MG Azithromycin 250 ml @ 125 mls/hr DAILY IV 03/14/24 10:00 03/14/24 09:44 125 MLS/HR Levalbuterol HCl 0.625 mg Q4HR NEB 03/14/24 14:00 03/14/24 13:49 0.625 MG Budesonide 0.25 mg BID NEB 03/14/24 22:00 objective Gen.: Patient lying in bed in no apparent distress. On supplemental oxygen. Head: Normocephalic, atraumatic. Eyes: EOMI/PERRLA. Ears: Normal hearing. Normal anatomy. Neck/trachea: Trachea midline, supple. Nose: Normal external anatomy. Mouth: Moist mucous membranes. Chest: Decreased air entry bilaterally. No wheezing or rhonchi. Cardiovascular: Positive S1, positive S2. Regular rate and rhythm. Abdomen: Positive bowel sounds in all 4 quadrants. Soft, non-tender, non- distended. : Deferred. Rectal: Deferred. Skin: Warm, dry. Intact. Extremities: 2+ radial pulses bilaterally. No lower extremity edema. Neuro: Awake, alert, oriented x3. No gross motor or sensory deficits. Cranial nerves II through XII intact. Gait not assessed. laboratory and microbiology Laboratory Tests 03/13/24 05:41 Test 03/13/24 05:41 Range/Units Serum Glucose 136 H 74-106 mg/dL Assessment/Plan Impression: Acute hypoxic respiratory failure Asthma exacerbation Dyspnea Wheezing Events: Currently on supplemental O2 at 2 LPM NC Taper O2 as tolerated Continue bronchodilators Continue IV steroids Started Pulmicort BID Continue abx - azithromycin Labs and imaging reviewed. Rest of plan as noted below. Plan: Supplemental oxygen Titrate to keep O2 sats above 92%. Continue bronchodilators. Steroids Incentive spirometry Monitor renal function. Monitor electrolytes. Supplement as necessary. Monitor ins and outs. DVT prophylaxis. Prognosis: Poor given patient's multiple co-morbidities. Rest of plan per hospitalist and other consultants. Thank you Brandie Kneny NP, for allowing me to participate in this patient's care. Further recommendations will depend on the patient's clinical course. Please do not hesitate to contact me if you have any questions or concerns. This medical document was created using an electronic medical record system with [employer] dictation system. Although these documentations are being carefully reviewed, there may still be some phonetic and typographical changes. The errors are purely typographical, due to imperfection on the software program, and do not reflect any compromise in the patient's medical care. Plan discussed with: Patient, Other (ANIBAL Retana) MAXIMO MOORE MD Mar 14, 2024 20:51
[2024-03-15] VITALS (24 sets, daily range): BP systolic 122–149; BP diastolic 70–96; PULSE 82–115; RESP 16–22; TEMP 98.1–98.8; O2SAT 90–100
[2024-03-15] MEDS: LEVALBUTEROL HCL 1.25 MG/3 ML NEB NEB SCH (09:48)
--- NOTE | 2024-03-15 21:30 | DVHPN2 ---
Progress Note - Dictate Date Seen: Mar 15, 2024 Has the PT tested + for MRSA If YES, has PT been informed?: No Medical Necessity Reason Pt with a Central, PICC or Fol: No Subjective Patient seen and examined at bedside. On supplemental oxygen Overnight events reviewed. vital signs Vital Sign Date Time Temp Pulse Resp B/P (MAP) Pulse Ox O2 Delivery O2 Flow Rate FiO2 03/15/24 20:43 98.8 95 16 132/70 (90) 93 98.8 03/15/24 18:00 Nasal Cannula 2.0 03/15/24 18:00 28 Total Intake and Output 03/14/24 03/14/24 03/15/24 15:00 23:00 07:00 Intake Total 850 ml 1360 ml 320 ml Balance 850 ml 1360 ml 320 ml medications Current Medications Medications Dose Ordered Sig/An Route Start Time Stop Time Status Last Admin Dose Admin Albuterol 2.5 mg Q4HPRN PRN NEB 03/12/24 10:15 Ipratropium [place] 0.5 mg Q4HPRN PRN NEB 03/12/24 10:15 Ipratropium [place] 0.5 mg Q4HR NEB 03/12/24 14:00 03/15/24 18:00 0.5 MG Methylprednisolone Sodium Succinate 40 mg Q8HR IV 03/12/24 14:00 03/15/24 14:57 40 MG Azithromycin 250 ml @ 125 mls/hr DAILY IV 03/14/24 10:00 03/15/24 09:36 125 MLS/HR Budesonide 0.25 mg BID NEB 03/14/24 22:00 03/15/24 06:13 0.25 MG Levalbuterol HCl 1.25 mg Q4HR NEB 03/15/24 10:00 03/15/24 18:00 1.25 MG objective Gen.: Patient lying in bed in no apparent distress. On supplemental oxygen. Head: Normocephalic, atraumatic. Eyes: EOMI/PERRLA. Ears: Normal hearing. Normal anatomy. Neck/trachea: Trachea midline, supple. Nose: Normal external anatomy. Mouth: Moist mucous membranes. Chest: Decreased air entry bilaterally. Wheezing noted. No rhonchi. Cardiovascular: Positive S1, positive S2. Regular rate and rhythm. Abdomen: Positive bowel sounds in all 4 quadrants. Soft, non-tender, non- distended. : Deferred. Rectal: Deferred. Skin: Warm, dry. Intact. Extremities: 2+ radial pulses bilaterally. No lower extremity edema. Neuro: Awake, alert, oriented x3. No gross motor or sensory deficits. Cranial nerves II through XII intact. Gait not assessed. laboratory and microbiology Laboratory Tests 03/13/24 05:41 Test 03/13/24 05:41 Range/Units Serum Glucose 136 H 74-106 mg/dL Assessment/Plan Impression: Acute hypoxic respiratory failure Asthma exacerbation Dyspnea Wheezing Events: Currently on supplemental O2 at 2 LPM NC Taper O2 as tolerated Wheezing - waxes and wanes. Continue bronchodilators Continue IV steroids Pulmicort BID Continue IV abx - azithromycin Labs and imaging reviewed. Rest of plan as noted below. Plan: Supplemental oxygen Titrate to keep O2 sats above 92%. Continue bronchodilators. Steroids Incentive spirometry Monitor renal function. Monitor electrolytes. Supplement as necessary. Monitor ins and outs. DVT prophylaxis. Prognosis: Poor given patient's multiple co-morbidities. Rest of plan per hospitalist and other consultants. Thank you Brandie Kenny NP, for allowing me to participate in this patient's care. Further recommendations will depend on the patient's clinical course. Please do not hesitate to contact me if you have any questions or concerns. This medical document was created using an electronic medical record system with [employer] dictation system. Although these documentations are being carefully reviewed, there may still be some phonetic and typographical changes. The errors are purely typographical, due to imperfection on the software program, and do not reflect any compromise in the patient's medical care. Plan discussed with: Patient, Other (ANIBAL Palmer) MAXIMO MOORE MD Mar 15, 2024 21:30
--- NOTE | 2024-03-15 21:46 | DVHPNRES ---
Progress Note Date Seen: Mar 15, 2024 Resident Creating Document: PRAMOD MEDEROS RESIDENT Has the PT tested + for MRSA If YES, has PT been informed?: No Medical Necessity Reason Pt with a Central, PICC or Fol: No Subjective Review of Systems Patient seen and examined. He was receiving his breathing treating at my time of visit. mild wheezing noted. He uses NC intermittently. Cough is getting better. Constitutional: Denies fever, chills or feeling of malaise HEENT: Denies headache, ear pain, ear discharges, or conjunctivitis, or nasal discharge Cardiovascular: Denies chest pain, palpitation, orthopnea, PND, pedal edema Respiratory: intermittent cough, no hemoptysis, GI: Denies abdominal pain, nausea, vomiting, diarrhea, hematemesis, hematochezia, : No frequency, no urgency, no hematuria, Endocrine endocrine no abdominal weight gain or weight loss, no feeling of hot flashes, Prashanth: Denies any easy bruising, bleeding disorders, epistaxis, Psych: No evidence of depression, bob, suicidal ideation Musculoskeletal: Denies joint pain or muscle weakness Objective vital signs Vital Sign Date Time Temp Pulse Resp B/P (MAP) Pulse Ox O2 Delivery O2 Flow Rate FiO2 03/15/24 20:43 98.8 95 16 132/70 (90) 93 98.8 03/15/24 18:00 Nasal Cannula 2.0 03/15/24 18:00 28 Total Intake and Output 03/14/24 03/14/24 03/15/24 15:00 23:00 07:00 Intake Total 850 ml 1360 ml 320 ml Balance 850 ml 1360 ml 320 ml medications Current Medications Medications Dose Ordered Sig/An Route Start Time Stop Time Status Last Admin Dose Admin Albuterol 2.5 mg Q4HPRN PRN NEB 03/12/24 10:15 Ipratropium [place] 0.5 mg Q4HPRN PRN NEB 03/12/24 10:15 Ipratropium [place] 0.5 mg Q4HR NEB 03/12/24 14:00 03/15/24 18:00 0.5 MG Methylprednisolone Sodium Succinate 40 mg Q8HR IV 03/12/24 14:00 03/15/24 14:57 40 MG Azithromycin 250 ml @ 125 mls/hr DAILY IV 03/14/24 10:00 03/15/24 09:36 125 MLS/HR Budesonide 0.25 mg BID NEB 03/14/24 22:00 03/15/24 06:13 0.25 MG Levalbuterol HCl 1.25 mg Q4HR NEB 03/15/24 10:00 03/15/24 18:00 1.25 MG Examination General examination- No obvious acute distress HEENT- PEERLA, no acute nasal discharge chest- S1-S2 audible, rate and rhythm regular, no murmur Lung -Clear bilateral Gastrointestinal- Non-distended, BS+, nontender Musculoskeletal-no acute joint swelling or tenderness or redness# Lower extremity- no leg edema Neurological- cranial nerves intact, no acute dysarthria or dysphagia Psychiatry- normal mood and affect Skin- no acute rash or purpura laboratory and microbiology Laboratory Tests 03/13/24 05:41 Test 03/13/24 05:41 Range/Units Serum Glucose 136 H 74-106 mg/dL Problem List/Assessment/Plan Problem List/Assessment/Plan Acute asthma exacerbation --> still wheezing --> Continue methylprednisolone --> Albuterol bromide/--> Ipratropium --> Budesonide added --> Recommended follow up with needle grinder upon discharge Acute hypoxic respiratory failure--resolved --> intermittent oxygen use Atypical pneumonia vs viral pneumonia; more likely viral pneumonia --> improving Cough --> Continue Azithromycin Dyspnea Code status: full code Goal of care discussed for more than 19 minute. Case plan discussed with Dr. Anguiano Plan discussed with: Patient Date of Service: Mar 15, 2024 Billing Provider: EDOUARD TRUJILLO MD Common Visit Codes: [id number] INP/OBS CARE(HIGH) PARMOD MEDEROS RESIDENT Mar 15, 2024 21:46 EDOUARD TRUJILLO MD Mar 15, 2024 22:43
[2024-03-16] VITALS (17 sets, daily range): BP systolic 114–150; BP diastolic 63–88; PULSE 69–105; RESP 16–19; TEMP 97.9–98.6; O2SAT 91–98
[2024-03-16] MEDS: predniSONE 20 MG TAB PO ONE (11:30)
--- NOTE | 2024-03-16 16:34 | DVH ---
EXAM: XY CHEST XRAY 1 VIEW TECHNIQUE: Single frontal chest radiograph CLINICAL HISTORY: Dyspnea, wheezing COMPARISON: XY CHEST PORTABLE on DOS: 03/12/24 Findings/Impression: Frontal chest radiograph demonstrates no acute osseous or superficial soft tissue abnormalities. The trachea is midline. The cardiac silhouette is within normal limits. Interval mild pneumomediastinum. Mild peribronchial cuffing may be due to viral bronchiolitis versus reactive airway disease. No pneumothorax, pleural effusions, or consolidations.
[2024-03-16] MEDS: IOHEXOL 350 MG/ML 100ML IJ ONE (17:43)
--- NOTE | 2024-03-16 18:23 | DVH ---
CTA Chest with intravenous contrast INDICATION: Dyspnea on exertion, Hypoxia on exertion r/o PE COMPARISON: None TECHNIQUE: Multidetector spiral CTA of the chest was performed of the chest with intravenous contrast . PULMONARY ANGIOGRAPHY PROTOCOL was utilized using a bolus-tracking technique centered on the main p ulmonary artery. Axial, coronal and sagittal multiplanar and MIP reformats were performed. CONTRAST: Type of contrast: Omni 350 Contrast injected: 100 ml Radiation dose : Chest: CTDI volume is 44 mGy. Dose-length product is 355.09 mGy*cm The dose indicators for CT are the volume computed Tomography (CT) dose Index (CTDIvol) and the dose Length product (DLP), and are measured in units of mGy and mGy-cm, respectively. These indicators are not patient dose, but values generated from the CT scanner acquisition factors. The report includes radiation exposure data for exposures received during this examination. Findings: Pulmonary artery: No pulmonary embolism Lower neck: Pneumomediastinum extends into the lower neck. Lungs: There is trace pleural air. No suspicious nodule or consolidation. Heart/Vascular Structures: Normal heart size. No pericardial effusion. Lymph Nodes: No adenopathy Pleura: Trace pleural air as above. Musculoskeletal: No acute osseous abnormality. Soft tissues: Extensive pneumomediastinum extending into the lower neck Upper abdomen: Limited portions of the upper abdomen are unremarkable. IMPRESSION: 1. No pulmonary embolism. 2. Extensive pneumomediastinum extending into the lower neck. Trace pleural air likely related to th e same process. Consider esophageal or tracheal injury. Clinical correlation and continued follow-up is recommended. HS:Y
[2024-03-16 18:50] LABS: COVID19 ANTIGEN SOFIA FIA NEGATIVE (NEGATIVE); Rapid Influenza A Negative (Negative); Rapid Influenza B Negative (Negative)
--- NOTE | 2024-03-16 19:36 | DVHPN2 ---
Progress Note - Dictate Date Seen: Mar 16, 2024 Has the PT tested + for MRSA If YES, has PT been informed?: No Medical Necessity Reason Pt with a Central, PICC or Fol: No Subjective Patient seen and examined at bedside. On supplemental oxygen Overnight events reviewed. vital signs Vital Sign Date Time Temp Pulse Resp B/P (MAP) Pulse Ox O2 Delivery O2 Flow Rate FiO2 03/16/24 18:10 92 18 97 03/16/24 18:00 Nasal Cannula 1.0 03/16/24 18:00 24 03/16/24 17:00 98.0 114/75 (88) 98.0 Total Intake and Output 03/15/24 03/15/24 03/16/24 15:00 23:00 07:00 Intake Total 250 ml 400 ml 400 ml Balance 250 ml 400 ml 400 ml medications Current Medications Medications Dose Ordered Sig/An Route Start Time Stop Time Status Last Admin Dose Admin Albuterol 2.5 mg Q4HPRN PRN NEB 03/12/24 10:15 Ipratropium [place] 0.5 mg Q4HR NEB 03/12/24 14:00 03/16/24 18:00 0.5 MG Azithromycin 250 ml @ 125 mls/hr DAILY IV 03/14/24 10:00 03/16/24 09:14 125 MLS/HR Levalbuterol HCl 1.25 mg Q4HR NEB 03/15/24 10:00 03/16/24 18:00 1.25 MG Prednisone 40 mg DAILY PO 03/17/24 10:00 Budesonide 0.5 mg BID NEB 03/16/24 22:00 Fluticasone Propionate 50 mcg Q12HR EACHNOSTRI 03/16/24 22:00 objective Gen.: Patient lying in bed in no apparent distress. On supplemental oxygen. Head: Normocephalic, atraumatic. Eyes: EOMI/PERRLA. Ears: Normal hearing. Normal anatomy. Neck/trachea: Trachea midline, supple. Nose: Normal external anatomy. Mouth: Moist mucous membranes. Chest: Decreased air entry bilaterally. No wheezing. No rhonchi. Cardiovascular: Positive S1, positive S2. Regular rate and rhythm. Abdomen: Positive bowel sounds in all 4 quadrants. Soft, non-tender, non- distended. : Deferred. Rectal: Deferred. Skin: Warm, dry. Intact. Extremities: 2+ radial pulses bilaterally. No lower extremity edema. Neuro: Awake, alert, oriented x3. No gross motor or sensory deficits. Cranial nerves II through XII intact. Gait not assessed. laboratory and microbiology Laboratory Tests 03/13/24 05:41 Test 03/13/24 05:41 Range/Units Serum Glucose 136 H 74-106 mg/dL Assessment/Plan Impression: Acute hypoxic respiratory failure Asthma exacerbation Dyspnea Wheezing Events: STAT CT chest to r/o pulmonary embolism and evaluate the mediastinum. Mild pneumomediastinum on chest x-ray CTA did not reveal pulmonary embolism. Severe pneumomediastinum, possible tracheal injury vs esophageal. Changes in patient's voice, hoarse and nasally sounding. Transfer to higher level of care for ENT eval due to possible laryngeal/vocal cord involvement. Remains on supplemental O2 at 2 LPM NC Taper O2 as tolerated Patient desaturates with exertion. Continue bronchodilators Continue IV steroids Pulmicort BID Continue IV abx - azithromycin Start Flonase nasal spray. No wheezing. Labs and imaging reviewed. Rest of plan as noted below. Plan: Supplemental oxygen Titrate to keep O2 sats above 92%. Continue bronchodilators. Steroids Incentive spirometry Monitor renal function. Monitor electrolytes. Supplement as necessary. Monitor ins and outs. DVT prophylaxis. Prognosis: Poor given patient's multiple co-morbidities. Rest of plan per hospitalist and other consultants. Thank you Brandie Kenny NP, for allowing me to participate in this patient's care. Further recommendations will depend on the patient's clinical course. Please do not hesitate to contact me if you have any questions or concerns. This medical document was created using an electronic medical record system with [employer] dictation system. Although these documentations are being carefully reviewed, there may still be some phonetic and typographical changes. The errors are purely typographical, due to imperfection on the software program, and do not reflect any compromise in the patient's medical care. Plan discussed with: Patient, Other (ANIBAL Clark) MAXIMO MOORE MD Mar 16, 2024 19:36
--- NOTE | 2024-03-16 20:09 | DVHPNRES ---
Progress Note Date Seen: Mar 16, 2024 Resident Creating Document: PRAMOD MEDEROS RESIDENT Has the PT tested + for MRSA If YES, has PT been informed?: No Medical Necessity Reason Pt with a Central, PICC or Fol: No Subjective Review of Systems Patient seen and examined this morning. He continues to complain of shortness of breaths. He is back on oxygen at 1L sating at 95%. When he tried walking, the desaturates to 88%. A repeat x-ray reveal mild Interval mild pneumomediastinum. CT lung shows Extensive pneumomediastinum extending into the lower neck. Trace pleural air likely related to the same process. Consider esophageal or tracheal injury. Clinical correlation and continued follow-up is recommended. No pulmonary embolism. Constitutional: Denies fever no chills no feeling of malaise HEENT: Denies headache, ear pain, ear discharges, conjunctivitis, nasal discharge throat pain Cardiovascular: Denies chest pain, palpitation, orthopnea, PND, or pedal edema Respiratory: persistent shortness of breath, mild cough, ; No sputum production or hemoptysis, GI: Denies abdominal pain, nausea, vomiting, diarrhea, hematemesis, hematochezia, : Denies frequency, urgency, hematuria, Endocrine: Denies unintentional weight gain or weight loss, feeling of hot flashes, Prashanth: Denies easy bruising, bleeding disorders, epistaxis Musculoskeletal: Denies joint pains, muscle aches Psych: No evidence of depression, bob, suicidal ideation Objective vital signs Vital Sign Date Time Temp Pulse Resp B/P (MAP) Pulse Ox O2 Delivery O2 Flow Rate FiO2 03/16/24 18:00 93 Nasal Cannula 1.0 03/16/24 18:00 24 03/16/24 18:00 88 18 03/16/24 17:00 98.0 114/75 (88) 98.0 Total Intake and Output 03/15/24 03/15/24 03/16/24 15:00 23:00 07:00 Intake Total 250 ml 400 ml 400 ml Balance 250 ml 400 ml 400 ml medications Current Medications Medications Dose Ordered Sig/An Route Start Time Stop Time Status Last Admin Dose Admin Albuterol 2.5 mg Q4HPRN PRN NEB 03/12/24 10:15 Ipratropium [place] 0.5 mg Q4HR NEB 03/12/24 14:00 03/16/24 18:00 0.5 MG Azithromycin 250 ml @ 125 mls/hr DAILY IV 03/14/24 10:00 03/16/24 09:14 125 MLS/HR Levalbuterol HCl 1.25 mg Q4HR NEB 03/15/24 10:00 03/16/24 18:00 1.25 MG Prednisone 40 mg DAILY PO 03/17/24 10:00 Budesonide 0.5 mg BID NEB 03/16/24 22:00 Fluticasone Propionate 50 mcg Q12HR EACHNOSTRI 03/16/24 22:00 Examination General examination- Mild distress on walking without oxygen HEENT: PEERLA, no acute nasal discharge Chest: S1-S2 audible, rate and rhythm regular, no murmur Lung: Mild wheeze. Otherwise unremarkable. Abdomen: Nondistend, BS+, nontenderness, no organomegaly Musculoskeletal: no acute joint swelling or tenderness Lower extremity: no leg edema Neurological: cranial nerves intact, no acute dysarthria or dysphagia Psychiatry-- Normal mood and affect Skin- no acute rash or purpura laboratory and microbiology Laboratory Tests 03/13/24 05:41 Test 03/13/24 05:41 Range/Units Serum Glucose 136 H 74-106 mg/dL Problem List/Assessment/Plan Problem List/Assessment/Plan Acute asthma exacerbation --> still wheezing --> Continue methylprednisolone --> Albuterol bromide/--> Ipratropium --> Budesonide added --> Recommended follow up with adult neuropsychologist upon discharge Acute hypoxic respiratory failure--resolved --> intermittent oxygen use Atypical pneumonia vs viral pneumonia; more likely viral pneumonia --> improving Cough --> Continue Azithromycin Persistent Dyspnea New: Extensive pneumomediastinum noted on CT lung 03/16/2024 plan: Transfer to a higher level of care Called [facility] transfer center ) and spoke with Madie Merritt [facility] transfer center: [phone] Dont have CTS [place]: [phone] Spoke with Dl. Wants us to fax over patient information for review [employer]: [phone] Jalyn Hall fax: [phone] Code status: full code Goal of care discussed for more than 19 minute. Case plan discussed with Dr. Anguiano Plan discussed with: Patient My Orders My Orders Orders - PRAMOD MEDEROS Procedure Category Date Status Time Prednisone Tablet PHA 03/17/24 In Process 10:00 Date of Service: Mar 16, 2024 Billing Provider: EDOUARD TRUJILLO MD Common Visit Codes: [id number] INP/OBS CARE(HIGH) PRAMOD MEDEROS Mar 16, 2024 20:09 EDOUARD TRUJILLO MD Mar 17, 2024 09:09
[2024-03-16] MEDS: FLUTICASONE PROP NASAL SPR 0.05 % (50MCG) 16GM EACHNOSTRI SCH (21:01)
[2024-03-16] MEDS: BUDESONIDE (INHALATION) 0.5 MG/2 ML NEB NEB SCH (21:46)
[2024-03-17] VITALS (52 sets, daily range): BP systolic 106–127; BP diastolic 52–77; PULSE 67–118; RESP 11–26; TEMP 97.5–100; O2SAT 90–100
[2024-03-17] MEDS: cefTRIAXone 1GM/50ML D5W 50 ML IV ONE (09:15)
[2024-03-17] MEDS: predniSONE 20 MG TAB PO SCH (09:44)
[2024-03-17 10:12] LABS: Basophils # (auto) 0 10 ^3/uL (0-0.2); Basophils % (auto) 0.2 % (0.0-2.0); Eosinophils # (auto) 0.1 10 ^3/uL (0-0.8); Eosinophils % (auto) 0.5 % (0.0-7.0); Hematocrit 48.3 % (41.0-53.0); Hemoglobin 16.2 g/dL (13.5-17.5); Lymphocytes # (auto) 2.2 10 ^3/uL (0.4-5.4); Lymphocytes % (auto) 19.5 % (10.0-50.0); Mean Corpuscular Hemoglobin 30.1 pg (28.0-32.0); Mean Corpuscular Hgb Conc. 33.6 g/dL (32.0-36.0); Mean Corpuscular Volume 89.6 fL (80.0-100.0); Monocytes # (auto) 1.2 10 ^3/uL (0-1.3); Monocytes % (auto) 10.5 % (0.0-12.0); Neutrophils # (auto) 7.7 10 ^3/uL (1.6-8.6); Neutrophils % (auto) 69.3 % (37.0-80.0); Nucleated Red Blood Cells % 0.1 %; Platelet Count (auto) 293 10^3/uL (140-450); Red Blood Cells 5.39 10^6/uL (4.5-5.90); Red Cell Distribution Width 13.1 % (11.8-14.3); White Blood Cell 11.1 10^3/uL (4.4-10.8)
[2024-03-17 10:34] LABS: Alanine Aminotransferase 31 U/L (7-40); Albumin 4.2 g/dL (3.2-4.8); Alkaline Phosphatase 64 U/L (46-116); Anion Gap 8 (5-15); Aspartate Aminotransferase 16 U/L (13-40); Blood Urea Nitrogen 23 mg/dL (9-23); Calcium 9.4 mg/dL (8.7-10.4); Carbon Dioxide 27 mmol/L (20-31); Chloride 105 mmol/L (98-107); Glucose 90 mg/dL (74-106); Potassium 3.8 mmol/L (3.5-5.1); Sodium 140 mmol/L (136-145)
[2024-03-17 10:35] LABS: Total Protein 7.1 g/dL (5.7-8.2)
[2024-03-17] MEDS: BUTORPHANOL TARTRATE 2 MG/1 ML VIAL IV ONE (10:45)
--- NOTE | 2024-03-17 11:28 | DVHPNRES ---
Progress Note Date Seen: Mar 17, 2024 Resident Creating Document: PRAMOD MEDEROS RESIDENT Has the PT tested + for MRSA If YES, has PT been informed?: No Medical Necessity Reason Pt with a Central, PICC or Fol: No Subjective Review of Systems Patient is hemodynamically stable. However he continued shortness of breath and patient is now requiring 3L of oxygen and transfer to [facility].Yesterday, patient's CT chest showed pneumomediastinum. Plan right now is to transfer patient for a HLOC. Currently in communication with doctors from [facility] and [facility]. manager [place] working on the transfer. Review of system: Constitutional: Feeling malaise. Denies fever no chills HEENT: Denies headache, ear pain, ear discharges, conjunctivitis, nasal discharge; throat pain Cardiovascular: Mild chest discomfort; No palpitation, orthopnea, PND, or pedal edema Respiratory: persistent shortness of breath, mild cough; No sputum production or hemoptysis, GI: Denies abdominal pain, nausea, vomiting, diarrhea, hematemesis, hematochezia, : Denies frequency, urgency, hematuria, Endocrine: Denies unintentional weight gain or weight loss, feeling of hot flashes, Prashanth: Denies easy bruising, bleeding disorders, epistaxis Musculoskeletal: Denies joint pains, muscle aches Psych: No evidence of depression, bob, suicidal ideation Objective vital signs Vital Sign Date Time Temp Pulse Resp B/P (MAP) Pulse Ox O2 Delivery O2 Flow Rate FiO2 03/17/24 10:00 98 Nasal Cannula* 3 32 03/17/24 09:50 96 18 03/17/24 09:00 99.0 122/73 (89) 99.0 Total Intake and Output 03/16/24 03/16/24 03/17/24 15:00 23:00 07:00 Intake Total 250 ml 700 ml 1300 ml Balance 250 ml 700 ml 1300 ml medications Current Medications Medications Dose Ordered Sig/An Route Start Time Stop Time Status Last Admin Dose Admin Albuterol 2.5 mg Q4HPRN PRN NEB 03/12/24 10:15 Ipratropium [place] 0.5 mg Q4HR NEB 03/12/24 14:00 03/17/24 09:40 0.5 MG Azithromycin 250 ml @ 125 mls/hr DAILY IV 03/14/24 10:00 03/17/24 09:44 125 MLS/HR Levalbuterol HCl 1.25 mg Q4HR NEB 03/15/24 10:00 03/17/24 09:40 1.25 MG Prednisone 40 mg DAILY PO 03/17/24 10:00 Budesonide 0.5 mg BID NEB 03/16/24 22:00 03/17/24 05:42 0.5 MG Fluticasone Propionate 50 mcg Q12HR EACHNOSTRI 03/16/24 22:00 03/17/24 09:44 50 MCG Ceftriaxone Sodium 50 ml @ 100 mls/hr DAILY@09 IV 03/18/24 09:00 Examination General examination- Mild distress in bed. HEENT: PEERLA, no acute nasal discharge, Tenderness in the neck Chest: S1-S2 audible, rate and rhythm regular, no murmur Lung: CTAB, Mild cervical tenderness Abdomen: Nondistend, BS+, nontenderness, no organomegaly Musculoskeletal: no acute joint swelling or tenderness Lower extremity: no leg edema Neurological: cranial nerves intact, no acute dysarthria Psychiatry-- Normal mood and affect Skin- no acute rash or purpura laboratory and microbiology Laboratory Tests 03/17/24 09:55 Test 03/17/24 09:55 Range/Units Serum Glucose 90 74-106 mg/dL Problem List/Assessment/Plan Problem List/Assessment/Plan Acute asthma exacerbation--> improved --> wheezing--improved --> Continue methylprednisolone --> Albuterol bromide/--> Ipratropium --> Budesonide added --> Recommended follow up with senior hr generalist upon discharge Acute hypoxic respiratory failure --> on 3L oxygen spo2 94% Atypical pneumonia vs viral pneumonia; more likely viral pneumonia --> Cough: improved --> Continue Azithromycin Persistent Dyspnea --> monitor closely for hemodynamic compromise Extensive pneumomediastinum noted on CT lung 03/16/2024 --> 1. Discussed the patient with Dr. Cummings on the phone ( 03/16/2024) and he recommended a transfer to [facility] --> Surgeon Dr. Rodriguez consulted and informed (03/17/2024). He recommend upright chest x-ray at 7 am tomorrow. PS: Dr. Rodriguez is available by call for any worsening symptoms --> Gastrofranin ( 03/17/24): pending report --> Alternative: Transfer to a higher level of care Attempts to transfer patient to a higher leverl of care on 03/16/2024 Called [facility] transfer center ) and spoke with Madie Merritt [facility] transfer center: [phone]: Carey have CTS [place] Cummings: [phone] Spoke with Dl. Wants us to fax over patient information for review [employer]: [phone] Jalyn Rafael fax: [phone] Code status: full code Goal of care discussed for more than 30 minute. Case plan discussed with Dr. Anguiano Plan discussed with: Patient, Other (girlfriend) My Orders My Orders Orders - PRAMOD MEDEROS Procedure Category Date Status Time Prednisone Tablet PHA 03/17/24 In Process 10:00 Imaging Transfer ORDERS 03/17/24 Transmitted Request 08:17 Date of Service: Mar 17, 2024 Billing Provider: EDOUARD TRUJILLO MD Common Visit Codes: [id number] INP/OBS CARE(HIGH) PRAMOD MEDEROS Mar 17, 2024 11:28 EDOUARD TRUJILLO MD Mar 19, 2024 09:15
--- NOTE | 2024-03-17 12:09 | DVH ---
CT NECK WITHOUT CONTRAST Clinical History: assess extent of pneumomediastinum, tracheal injury Comparison: CT CT ANGIO CHEST CONTRAST on DOS: 03/16/24 Technique: Multiple contiguous CT images of the neck were obtained without intravenous contrast. The se images were reformatted degenerate coronal and sagittal reconstructions. Radiation Dose Information: CT Dose: CTDI volume is 19.73 mGy. Dose-length product is 529.48 mGy*cm Findings: Evaluation of the soft tissues of the neck is limited without intravenous contrast. There is moderate amount of air seen tracking in the prevertebral soft tissues and along the right an d left margins of the trachea and hypopharynx extending superiorly to the level of the oropharynx. Th ere is air tracking inferiorly into the superior mediastinum. The visualized trachea appears intact w ith smooth oval contour. The glottis appear symmetric. The hypopharynx and oropharynx grossly appear unremarkable. There is no evidence of a soft tissue neck mass or pathologically enlarged cervical lymph nodes. The visualized intracranial contents appear within normal limits. The lung apices are clear. The vis ualized paranasal sinuses and mastoid air cells are also clear. The osseous structures appear within normal limits. Impression: 1. There is moderate amount of air seen tracking in the prevertebral soft tissues and along the right and left margins of the trachea and hypopharynx extending superiorly to the level of the oropharynx and inferiorly into the superior mediastinum. 2. The visualized upper trachea appears intact with smooth oval contour. Glottis appear symmetric. HS:Y
--- NOTE | 2024-03-17 12:25 | DVH ---
CHEST RADIOGRAPH Indication: sob Technique: Single frontal view of the chest was obtained COMPARISON: XY CHEST XRAY 1 VIEW on DOS: 03/16/24, XY CHEST PORTABLE on DOS: 03/12/24 FINDINGS: Lines and Tubes: None Lungs: Clear Pleura: No effusion. No pneumothorax. Cardiomediastinal contours: Unremarkable Bones: Unremarkable IMPRESSION: No acute disease.
[2024-03-17] MEDS ORDERED: VANCOMYCIN PER PHARMACY 0 MG IV SCH (13:30)
[2024-03-17] MEDS: LACTATED RINGER'S 1,000 ML IV SCH (13:30)
[2024-03-17] MEDS: VANCOMYCIN 1GM/200ML PREMIX 200 ML IV ONE (15:00)
[2024-03-17] MEDS: metroNIDAZOLE 500MG/100ML 100 ML IV SCH (15:30)
[2024-03-17] MEDS: GASTROGRAFIN 30 ML SOL ONE (15:46)
[2024-03-17] MEDS: IOHEXOL 300 MG/ML 100ML BOTTLE IJ ONE (15:47)
[2024-03-17] MEDS: CEFEPIME 1GM/ 50ML 50 ML IV SCH (16:01)
[2024-03-17] MEDS: MORPHINE SULFATE INJ 2 MG/ml SYRG IV ONE (16:36)
--- NOTE | 2024-03-17 16:44 | DVH ---
Fluoroscopic Esophagram Date: 03/17/2024 04:15 PM Clinical History: esophageal rupture Comparison: None Fluoroscopy time: Not given Technique: 5 Fluoroscopic images obtained of the thoracic esophagus with omnipaque 300 consumed orall y. Procedure and Findings: An AP [employer] gas lease pumper view of the chest and upper abdomen was obtained. The visualized lungs are clear and cardiomediastinal silhouette is within normal limits. The visualiz ed upper abdomen appears unremarkable. The patient self-administered thick and thin barium under fluoroscopic evaluation. Spot images were obtained. Overhead MORALES and PA views of the abdomen were obtained at the conclusion of the study. Esophageal peristalsis was normal. Contrast flowed through the esophagus without impediment. There is no hiatal hernia or gastroesophageal reflux. There is no esophageal mucosal irregularity. No evidence for contrast extravasation to suggest a le ak or perforation. The patient tolerated the procedure well. IMPRESSION: 1. 5 images of the thoracic esophagus containing Omnipaque 300 demonstrated in the esophagus to be in tact with no extravasation and no findings to suggest obstruction at this time. HS:Y
--- NOTE | 2024-03-17 16:51 | DVH ---
INDICATION: ESOPHAGEAL RUPTURE ORAL CONTRAST PER RAD COMPARISON: None TECHNIQUE: Multidetector CTA of the chest was performed of the chest with 100 cc of intravenous contr ast. PULMONARY ANGIOGRAPHY PROTOCOL was utilized using a bolus-tracking technique centered on the anshu n pulmonary artery. Axial, coronal and sagittal multiplanar and MIP reformats were performed. Radiation Dose Information: CT Dose: CTDI volume is 9.29 mGy. Dose-length product is 444.03 mGy*cm The dose indicators for CT are the volume Computed Tomography (CT) Dose Index (CTDIvol) and the Dose Length Product (DLP), and are measured in units of mGy and mGy-cm, respectively. These indicators are not patient dose, but values generated from the CT scanner acquisition factors. The report includes radiation exposure data for exposures received during this examination. Findings: Pulmonary artery: Normal caliber of the pulmonary artery. No large central or large segmental pulmo nary embolism. Lower neck: Normal thyroid. Lungs: No focal consolidation, pulmonary mass, or suspicious pulmonary nodule. Pneumomediastinum Heart/Vascular Structures: Normal heart size. Normal caliber and enhancement of the aorta. Lymph Nodes: No adenopathy Pleura: No pleural effusion or significant pneumothorax. Musculoskeletal: No acute osseous abnormality. Upper abdomen: Limited portions of the upper abdomen are unremarkable. Contrast noted in the stomach. IMPRESSION: 1. No pulmonary embolism. 2. Pneumomediastinum. 3. No contrast extravasation in the surrounding soft tissues can not rule out submucosal tear. HS:Y
[2024-03-17 17:31] LABS: INR 1.09 (0.9-1.15); Partial Thromboplastin Time 27.4 SEC (24.5-34.5); Prothrombin Time 11.5 sec (9.3-11.8)
--- NOTE | 2024-03-17 20:31 | DVHPN2 ---
Progress Note - Dictate Date Seen: Mar 17, 2024 Has the PT tested + for MRSA If YES, has PT been informed?: No Medical Necessity Reason Pt with a Central, PICC or Fol: No Subjective Patient seen and examined at bedside. On supplemental oxygen Overnight events reviewed. vital signs Vital Sign Date Time Temp Pulse Resp B/P (MAP) Pulse Ox O2 Delivery O2 Flow Rate FiO2 03/17/24 19:15 92 13 127/73 (91) 98 03/17/24 17:45 99.0 99.0 03/17/24 10:00 Nasal Cannula* 3 32 Total Intake and Output 03/16/24 03/16/24 03/17/24 15:00 23:00 07:00 Intake Total 250 ml 700 ml 1300 ml Balance 250 ml 700 ml 1300 ml medications Current Medications Medications Dose Ordered Sig/An Route Start Time Stop Time Status Last Admin Dose Admin Albuterol 2.5 mg Q4HPRN PRN NEB 03/12/24 10:15 Azithromycin 250 ml @ 125 mls/hr DAILY IV 03/14/24 10:00 03/17/24 09:44 125 MLS/HR Budesonide 0.5 mg BID NEB 03/16/24 22:00 03/17/24 05:42 0.5 MG Fluticasone Propionate 50 mcg Q12HR EACHNOSTRI 03/16/24 22:00 03/17/24 09:44 50 MCG Cefepime HCl 50 ml @ 12.5 mls/hr Q8H IV 03/17/24 15:00 03/17/24 16:01 12.5 MLS/HR Vancomycin HCl 0 ml @ 0 mls/hr UD IV 03/17/24 13:30 Metronidazole 100 ml @ 100 mls/hr Q8HR IV 03/17/24 14:00 03/17/24 15:30 100 MLS/HR Lactated Ringer's 1,000 ml @ 100 mls/hr Q10H IV 03/17/24 13:30 03/17/24 13:30 100 MLS/HR Methylprednisolone Sodium Succinate 40 mg DAILY IV 03/18/24 10:00 Ipratropium [place] 0.5 mg Q6HPRN PRN NEB 03/17/24 18:00 Levalbuterol HCl 1.25 mg Q6HPRN PRN NEB 03/17/24 18:00 Morphine Sulfate 1 mg Q6HP PRN IV 03/17/24 20:00 objective Gen.: Patient lying in bed in no apparent distress. On supplemental oxygen. Head: Normocephalic, atraumatic. Eyes: EOMI/PERRLA. Ears: Normal hearing. Normal anatomy. Neck/trachea: Trachea midline, supple. Nose: Normal external anatomy. Mouth: Moist mucous membranes. Chest: Decreased air entry bilaterally. No wheezing. No rhonchi. Cardiovascular: Positive S1, positive S2. Regular rate and rhythm. Abdomen: Positive bowel sounds in all 4 quadrants. Soft, non-tender, non- distended. : Deferred. Rectal: Deferred. Skin: Warm, dry. Intact. Extremities: 2+ radial pulses bilaterally. No lower extremity edema. Neuro: Awake, alert, oriented x3. No gross motor or sensory deficits. Cranial nerves II through XII intact. Gait not assessed. laboratory and microbiology Laboratory Tests 03/17/24 09:55 Test 03/17/24 09:55 Range/Units Serum Glucose 90 74-106 mg/dL Assessment/Plan Impression: Acute hypoxic respiratory failure Asthma exacerbation Dyspnea Wheezing Events: CT chest ruled out pulmonary embolism, demonstrated pneumomediastinum. Gastrografin study, impression: 5 images of the thoracic esophagus containing Omnipaque 300 demonstrated in the esophagus to be intact with no extravasation and no findings to suggest obstruction at this time. CTA demonstrated no PE; severe pneumomediastinum, possible tracheal injury vs esophageal. Continues with changes in voice, hoarse and nasally sounding. Transfer to higher level of care for ENT eval due to possible laryngeal/vocal cord involvement. Continue to monitor pneumomediastinum. Obtain daily CXR. Remains on supplemental O2 at 2 LPM NC Taper O2 as tolerated Patient desaturates with exertion. Continue bronchodilators Continue IV steroids Pulmicort BID Continue antibiotics Flonase nasal spray. Cough suppression. Labs and imaging reviewed. Rest of plan as noted below. Plan: Supplemental oxygen Titrate to keep O2 sats above 92%. Continue bronchodilators. Steroids Incentive spirometry Monitor renal function. Monitor electrolytes. Supplement as necessary. Monitor ins and outs. DVT prophylaxis. Prognosis: Poor given patient's multiple co-morbidities. Condition: Critical Rest of plan per hospitalist and other consultants. A total of 35 minutes of critical care time was spent reviewing the patient record, examining the patient, making a diagnostic and therapeutic plan, discussing this plan with the medical personnel, following up on diagnostic studies and following the patient for clinical stability excluding any and all procedures. At least 50% of this time was spent in direct, [id number] contact. Thank you Brandie Kenny NP, for allowing me to participate in this patient's care. Further recommendations will depend on the patient's clinical course. Please do not hesitate to contact me if you have any questions or concerns. This medical document was created using an electronic medical record system with [employer] dictation system. Although these documentations are being carefully reviewed, there may still be some phonetic and typographical changes. The errors are purely typographical, due to imperfection on the software program, and do not reflect any compromise in the patient's medical care. Dietary Evaluation Review Comments: Continue current plan of care Expected Outcomes/Goals: F/U in 3-5 days Plan discussed with: Other (ANIBAL Sanz) Critical Care Time(min): 35 MAXIMO MOORE MD Mar 17, 2024 20:31
[2024-03-17] MEDS: MORPHINE SULFATE INJ 2 MG/ml SYRG IV PRN (21:56)
[2024-03-17] MEDS: IPRATROPIUM BROM 0.5 MG/2.5ML INH SOL NEB PRN (22:05)
[2024-03-17] MEDS: LEVALBUTEROL HCL 1.25 MG/3 ML NEB NEB PRN (22:06)
[2024-03-18] VITALS (67 sets, daily range): BP systolic 96–124; BP diastolic 61–87; PULSE 58–99; RESP 9–22; TEMP 97.7–99.2; O2SAT 91–100
--- NOTE | 2024-03-18 02:43 | DVHSR ---
APPROVED REPORT EXAM: Two-dimensional and M-mode echocardiogram with Doppler and color Doppler. Blood Pressure: 116/74 mmHg INDICATION Chest Pain RISK FACTORS Height: 5'8", Weight: 164 DIMENSIONS LVDd4.5 (3.8-5.7cm)LA (2D)3.2 (1.9-4.0cm)Aortic Root2.9 (2.0-3.7cm) LVDs3.4 (2.5-4.0cm)LA (MM) (1.9-4.0cm)Aortic Cusp Exc2.0 (1.5-2.0cm) EF (%) 50.0 (55-70%)Rt. Atrium3.2 (1.9-4.0cm)Asc. Aorta2.8 cm IVSd0.8 (0.7-1.1cm)RV (D)3.1 (1.8-2.4cm) PWd0.9 (0.7-1.1cm) Mitral Valve MitralMitral Stenosis E/A ratio0.02D MVAcm2 Aortic Valve Aortic ValveAortic Stenosis V10.72m/Itzel Mean GR.3mmHg V21.10m/Itzel Peak GR.5mmHg LVOT Diameter2.2 (1.8-2.4cm)Doppler AVA2.49cm2 Pulmonic Valve V20.59m/s Conclusion MILD LV GLOBAL HYPOKINESIS AND SLIGHTLY DILATED LV LV EJECTION FRACTION IS IN RANGE OF 44% AND IS REDUCED NORMAL VALVES NO EFFUSION SUGGEST TO REPEAT ECHO AFTER 3 MONTHS TO EVALUATE LV EJECTION FRACTION
--- NOTE | 2024-03-18 05:51 | DVH ---
CHEST RADIOGRAPH Indication: pneumomediastinum Technique: Single frontal view of the chest was obtained Comparison: XY CHEST PORTABLE on DOS: 03/17/24, XY CHEST XRAY 1 VIEW on DOS: 03/16/24, XY CHEST CHARITY BLE on DOS: 03/12/24 IMPRESSION: Heart appears normal in size. The lungs appear clear without focal airspace opacity, effusion, or pn eumothorax. Linear lucency is most pronounced in the upper neck have mildly improved consistent with known pneumomediastinum.
[2024-03-18 05:59] LABS: Calcium 8.9 mg/dL (8.7-10.4); Chloride 107 mmol/L (98-107); Potassium 4.6 mmol/L (3.5-5.1); Sodium 140 mmol/L (136-145)
[2024-03-18 06:00] LABS: Anion Gap 11 (5-15); Carbon Dioxide 22 mmol/L (20-31)
[2024-03-18 06:05] LABS: BUN/Creatinine Ratio 22.8 (10.0-20.0); Blood Urea Nitrogen 28 mg/dL (9-23); Glucose 75 mg/dL (74-106)
[2024-03-18] MEDS: methylPREDNISolone SOD SUCC 40 MG/ML VL IV SCH (08:03)
[2024-03-18] MEDS ORDERED: cefTRIAXone 1GM/50ML D5W 50 ML IV SCH (09:00)
--- NOTE | 2024-03-18 09:20 | MEDREC ---
[facility] ASP Intervention Section I FOR[facility] ASP Intervention: Review courses of therapy (CHEST X-RAY AND CHEST CT SHOWED PNEUMOMEDIASTINUM, BUT OTHERWISE CLEAR WITHOUT FOCAL AIRSPACE OPACITY. SHE IS NEGATIVE FOR FLU AND COVID. PER MD'S NOTE, SHE HAS ASTHMA EXACERBATION. PATIENT IS ALREADY ON BROAD SPECTRUM WITH CEFEPIME AND VANCOMYCIN. PLEASE CON MOLDER APPRENTICE D/C AZITHROMYCIN AND METRONIDAZOLE.) BRODIE OCHOA Mar 18, 2024 09:20
[2024-03-18] MEDS: VANCOMYCIN 1GM/200ML PREMIX 200 ML IV SCH (10:00)
[2024-03-18 10:01] LABS: Basophils # (auto) 0 10 ^3/uL (0-0.2); Basophils % (auto) 0.2 % (0.0-2.0); Eosinophils # (auto) 0.4 10 ^3/uL (0-0.8); Eosinophils % (auto) 4.7 % (0.0-7.0); Hematocrit 47.7 % (41.0-53.0); Hemoglobin 16.2 g/dL (13.5-17.5); Lymphocytes # (auto) 2.2 10 ^3/uL (0.4-5.4); Lymphocytes % (auto) 24.9 % (10.0-50.0); Mean Corpuscular Hemoglobin 30.4 pg (28.0-32.0); Mean Corpuscular Volume 89.3 fL (80.0-100.0); Monocytes # (auto) 0.7 10 ^3/uL (0-1.3); Monocytes % (auto) 7.5 % (0.0-12.0); Neutrophils # (auto) 5.5 10 ^3/uL (1.6-8.6); Neutrophils % (auto) 62.7 % (37.0-80.0); Nucleated Red Blood Cells % 0.1 %; Platelet Count (auto) 290 10^3/uL (140-450); Red Blood Cells 5.35 10^6/uL (4.5-5.90); Red Cell Distribution Width 12.9 % (11.8-14.3); White Blood Cell 8.7 10^3/uL (4.4-10.8)
[2024-03-18] MEDS: MAGNESIUM SULFATE 1GM/100ML 100 ML IV ONE (10:31)
--- NOTE | 2024-03-18 10:55 | DVHPNRES ---
Progress Note Date Seen: Mar 18, 2024 Resident Creating Document: PRAMOD MEDEROS RESIDENT Has the PT tested + for MRSA If YES, has PT been informed?: No Medical Necessity Reason Pt with a Central, PICC or Fol: No Subjective Review of Systems Patient seen and examined today. He is feeling slightly improved. His voice is sounding a little better and less nasal. He was seen by Dr. gloria as well who recommended no surgical intervention as pneumomediastinum in improving. Constitutional: Denies fever no chills no feeling of malaise HEENT: Denies headache, ear pain, ear discharges, conjunctivitis, nasal discharge throat pain Cardiovascular: Denies chest pain, palpitation, orthopnea, PND, or pedal edema Respiratory:on room air, oxygen prn, improved but intermittent cough, NO sputum production, hemoptysis, GI: Denies abdominal pain, nausea, vomiting, diarrhea, hematemesis, hematochezia, : Denies frequency, urgency, hematuria, Endocrine: Denies unintentional weight gain or weight loss, feeling of hot flashes, Prashanth: Denies easy bruising, bleeding disorders, epistaxis Musculoskeletal: Denies joint pains, muscle aches Psych: No evidence of depression, bob, suicidal ideation Objective vital signs Vital Sign Date Time Temp Pulse Resp B/P (MAP) Pulse Ox O2 Delivery O2 Flow Rate FiO2 03/18/24 10:36 58 16 103/67 99 2.0 28 03/18/24 09:38 Room Air 03/18/24 08:00 98.1 98.1 Total Intake and Output 03/17/24 03/17/24 03/18/24 15:00 23:00 07:00 Intake Total 400 ml 1228.0 ml 977.0 ml Output Total 500 ml Balance 400 ml 728.0 ml 977.0 ml medications Current Medications Medications Dose Ordered Sig/An Route Start Time Stop Time Status Last Admin Dose Admin Albuterol 2.5 mg Q4HPRN PRN NEB 03/12/24 10:15 Azithromycin 250 ml @ 125 mls/hr DAILY IV 03/14/24 10:00 03/18/24 08:03 125 MLS/HR Budesonide 0.5 mg BID NEB 03/16/24 22:00 03/17/24 22:06 0.5 MG Fluticasone Propionate 50 mcg Q12HR EACHNOSTRI 03/16/24 22:00 03/18/24 08:04 50 MCG Cefepime HCl 50 ml @ 12.5 mls/hr Q8H IV 03/17/24 15:00 03/18/24 06:40 12.5 MLS/HR Vancomycin HCl 0 ml @ 0 mls/hr UD IV 03/17/24 13:30 Metronidazole 100 ml @ 100 mls/hr Q8HR IV 03/17/24 14:00 03/18/24 05:42 100 MLS/HR Lactated Ringer's 1,000 ml @ 100 mls/hr Q10H IV 03/17/24 13:30 03/18/24 02:27 100 MLS/HR Methylprednisolone Sodium Succinate 40 mg DAILY IV 03/18/24 10:00 03/18/24 08:03 40 MG Ipratropium [place] 0.5 mg Q6HPRN PRN NEB 03/17/24 18:00 03/17/24 22:05 0.5 MG Levalbuterol HCl 1.25 mg Q6HPRN PRN NEB 03/17/24 18:00 03/17/24 22:06 1.25 MG Morphine Sulfate 1 mg Q6HP PRN IV 03/17/24 20:00 03/17/24 21:56 1 MG Vancomycin HCl 200 ml @ 200 mls/hr Q12H IV 03/18/24 10:00 03/18/24 10:00 200 MLS/HR Examination General examination- less distress in bed. HEENT: PEERLA, no acute nasal discharge, Tenderness in the neck Chest: S1-S2 audible, rate and rhythm regular, no murmur Lung: mild wheezing noted today, still cervical tenderness. Not worse Abdomen: Nondistend, BS+, nontenderness, no organomegaly Musculoskeletal: no acute joint swelling or tenderness Lower extremity: no leg edema Neurological: cranial nerves intact, no acute dysarthria Psychiatry-- Normal mood and affect Skin- no acute rash or purpura laboratory and microbiology Laboratory Tests 03/18/24 09:25 03/18/24 05:12 Test 03/18/24 05:12 Range/Units Serum Glucose 75 74-106 mg/dL Problem List/Assessment/Plan Problem List/Assessment/Plan Acute asthma exacerbation--> improved --> Mild wheezing--improved --> Continue methylprednisolone --> Albuterol bromide/--> Ipratropium --> Budesonide added --> Recommended follow up with military professional upon discharge Acute hypoxic respiratory failure --> on 3L oxygen spo2 94% Atypical pneumonia vs viral pneumonia; more likely viral pneumonia --> Cough: intermittent; start Dextromethorphan 03/18/2024 --> Ceftriaxone; Discontinue --> Azithromycin --> Vancomycin --> Cefepime --> Metronidazole Persistent Dyspnea --> monitor closely for hemodynamic compromise Extensive pneumomediastinum noted on CT lung 03/16/2024 --> 1. Discussed the patient with Dr. Cummings on the phone ( 03/16/2024) and he recommended a transfer to [facility] --> Surgeon Dr. Rodriguez consulted and informed (03/17/2024). He recommend upright chest x-ray at 7 am tomorrow. PS: Dr. Rodriguez is available by call for any worsening symptoms --> Gastrofranin ( 03/17/24): 5 images of the thoracic esophagus containing Omnipaque 300 demonstrated in the esophagus to be intact with no extravasation and no findings to suggest obstruction at this time --> Per Dr. Rodriguez (03/18/2024): No surgical intervention needed. Under observation another night in the [facility] Transfer to a [facility] on currently cancelled Attempts to transfer patient to a higher level of care on 03/16/[address] [facility] transfer center ( [phone]) and spoke with Madie Merritt [facility] transfer center: [phone]: Carey have [facility] [place]: [phone] Spoke with Dl. Wants us to fax over patient information for review [facility]: [phone] Jalyn Hall fax: [phone] Code status: full code Goal of care discussed for more than 25 minute. Case plan discussed with Dr. Anguiano Plan discussed with: Patient My Orders My Orders Orders - PRAMOD MEDEROS RESIDENT Procedure Category Date Status Time Esophagus XY 03/17/24 Resulted Gastrografin Swallow 14:[address] 03/17/24 Resulted 15:42 Mrsa Screen TAY 03/17/24 In Process 12:45 Imaging Transfer ORDERS 03/18/24 Transmitted Request 10:35 Dietary Evaluation Review Comments: Continue current plan of care Expected Outcomes/Goals: F/U in 3-5 days Date of Service: Mar 18, 2024 Billing Provider: EDOUARD TRUJILLO MD Common Visit Codes: [id number] INP/OBS CARE(HIGH) PRAMOD MEDEROS RESIDENT Mar 18, 2024 10:55 EDOUARD TRUJILLO MD Mar 19, 2024 09:07
[2024-03-18] MEDS: guaiFENesin-CODEINE Liq 5 ML UD PO SCH (13:10)
--- NOTE | 2024-03-18 21:33 | DVHPN2 ---
Progress Note - Dictate Date Seen: Mar 18, 2024 Has the PT tested + for MRSA If YES, has PT been informed?: No Medical Necessity Reason Pt with a Central, PICC or Fol: No Subjective Patient seen and examined at bedside. Breathing comfortably on room air. Overnight events reviewed. vital signs Vital Sign Date Time Temp Pulse Resp B/P (MAP) Pulse Ox O2 Delivery O2 Flow Rate FiO2 03/18/24 20:30 59 10 98 Room Air* 0 21 03/18/24 20:15 03/18/24 20:00 97.9 97.9 Total Intake and Output 03/18/24 03/18/24 03/18/24 01:30 09:30 17:30 Intake Total 957.5 ml 1080.0 ml 1400 ml Output Total 550 ml Balance 957.5 ml 1080.0 ml 850 ml medications Current Medications Medications Dose Ordered Sig/An Route Start Time Stop Time Status Last Admin Dose Admin Albuterol 2.5 mg Q4HPRN PRN NEB 03/12/24 10:15 Azithromycin 250 ml @ 125 mls/hr DAILY IV 03/14/24 10:00 03/18/24 08:03 125 MLS/HR Budesonide 0.5 mg BID NEB 03/16/24 22:00 03/18/24 15:14 0.5 MG Fluticasone Propionate 50 mcg Q12HR EACHNOSTRI 03/16/24 22:00 03/18/24 08:04 50 MCG Cefepime HCl 50 ml @ 12.5 mls/hr Q8H IV 03/17/24 15:00 03/18/24 13:10 12.5 MLS/HR Vancomycin HCl 0 ml @ 0 mls/hr UD IV 03/17/24 13:30 Metronidazole 100 ml @ 100 mls/hr Q8HR IV 03/17/24 14:00 03/18/24 21:30 100 MLS/HR Methylprednisolone Sodium Succinate 40 mg DAILY IV 03/18/24 10:00 03/18/24 08:03 40 MG Ipratropium [place] 0.5 mg Q6HPRN PRN NEB 03/17/24 18:00 03/18/24 15:14 0.5 MG Levalbuterol HCl 1.25 mg Q6HPRN PRN NEB 03/17/24 18:00 03/18/24 15:14 1.25 MG Morphine Sulfate 1 mg Q6HP PRN IV 03/17/24 20:00 03/17/24 21:56 1 MG Vancomycin HCl 200 ml @ 200 mls/hr Q12H IV 03/18/24 10:00 03/18/24 21:30 200 MLS/HR Guaifenesin/ Codeine Phosphate 5 ml Q4H PO 03/18/24 11:30 03/19/24 14:00 03/18/24 13:10 5 ML objective Gen.: Patient lying in bed in no apparent distress. Breathing on room air. Head: Normocephalic, atraumatic. Eyes: EOMI/PERRLA. Ears: Normal hearing. Normal anatomy. Neck/trachea: Trachea midline, supple. Nose: Normal external anatomy. Mouth: Moist mucous membranes. Chest: Decreased air entry bilaterally. No wheezing. No rhonchi. Cardiovascular: Positive S1, positive S2. Regular rate and rhythm. Abdomen: Positive bowel sounds in all 4 quadrants. Soft, non-tender, non- distended. : Deferred. Rectal: Deferred. Skin: Warm, dry. Intact. Extremities: 2+ radial pulses bilaterally. No lower extremity edema. Neuro: Awake, alert, oriented x3. No gross motor or sensory deficits. Cranial nerves II through XII intact. Gait not assessed. laboratory and microbiology Laboratory Tests 03/18/24 09:25 03/18/24 05:12 Test 03/18/24 05:12 Range/Units Serum Glucose 75 74-106 mg/dL Assessment/Plan Impression: Acute hypoxic respiratory failure Asthma exacerbation Dyspnea Wheezing Events: Breathing comfortably on room air. No respiratory distress. Pneumomediastinum - no plan for surgical intervention. CXR demonstrates mild improvement in linear lucency most pronounced in the upper neck c/w known pneumomediastinum. Voice hoarseness improving. Continue to monitor Continue bronchodilators Continue IV steroids Pulmicort BID Continue antibiotics Flonase nasal spray. Cough suppression. PT. Labs and imaging reviewed. Rest of plan as noted below. Plan: Supplemental oxygen Titrate to keep O2 sats above 92%. Continue bronchodilators. Steroids Incentive spirometry Monitor renal function. Monitor electrolytes. Supplement as necessary. Monitor ins and outs. DVT prophylaxis. Prognosis: Poor given patient's multiple co-morbidities. Condition: Critical Rest of plan per hospitalist and other consultants. A total of 35 minutes of critical care time was spent reviewing the patient record, examining the patient, making a diagnostic and therapeutic plan, discussing this plan with the medical personnel, following up on diagnostic studies and following the patient for clinical stability excluding any and all procedures. At least 50% of this time was spent in direct, [id number] contact. Thank you Brandie Kenny NP, for allowing me to participate in this patient's care. Further recommendations will depend on the patient's clinical course. Please do not hesitate to contact me if you have any questions or concerns. This medical document was created using an electronic medical record system with [employer] dictation system. Although these documentations are being carefully reviewed, there may still be some phonetic and typographical changes. The errors are purely typographical, due to imperfection on the software program, and do not reflect any compromise in the patient's medical care. Dietary Evaluation Review Comments: Continue current plan of care Expected Outcomes/Goals: F/U in 3-5 days Plan discussed with: Other (ANIBAL Neumann) Critical Care Time(min): 35 MAXIMO MOORE MD Mar 18, 2024 21:33
[2024-03-19] VITALS (37 sets, daily range): BP systolic 92–130; BP diastolic 60–91; PULSE 54–123; RESP 11–21; TEMP 97.5–98.3; O2SAT 91–100
--- NOTE | 2024-03-19 05:37 | DVH ---
CHEST RADIOGRAPH Indication: SOB Technique: Single frontal view of the chest was obtained COMPARISON: XY CHEST XRAY 1 VIEW on DOS: 03/18/24, XY CHEST PORTABLE on DOS: 03/17/24, XY CHEST XRAY 1 VIEW on DOS: 03/16/24 FINDINGS: Lines and Tubes: None Lungs: Mild diffuse increased interstitial prominence. Pleura: No effusion. No pneumothorax. Cardiomediastinal contours: Unremarkable Bones: Unremarkable IMPRESSION: Unchanged congestion. This may represent viral pneumonitis. Clinical correlation advised.
[2024-03-19 06:24] LABS: Basophils # (auto) 0 10 ^3/uL (0-0.2); Basophils % (auto) 0.1 % (0.0-2.0); Eosinophils # (auto) 0.3 10 ^3/uL (0-0.8); Eosinophils % (auto) 2.5 % (0.0-7.0); Hematocrit 45.5 % (41.0-53.0); Hemoglobin 15.6 g/dL (13.5-17.5); Lymphocytes # (auto) 2.1 10 ^3/uL (0.4-5.4); Lymphocytes % (auto) 19.5 % (10.0-50.0); Mean Corpuscular Hemoglobin 30.3 pg (28.0-32.0); Mean Corpuscular Hgb Conc. 34.3 g/dL (32.0-36.0); Mean Corpuscular Volume 88.6 fL (80.0-100.0); Monocytes # (auto) 0.9 10 ^3/uL (0-1.3); Monocytes % (auto) 7.9 % (0.0-12.0); Neutrophils # (auto) 7.6 10 ^3/uL (1.6-8.6); Nucleated Red Blood Cells % 0.1 %; Platelet Count (auto) 269 10^3/uL (140-450); Red Blood Cells 5.14 10^6/uL (4.5-5.90); Red Cell Distribution Width 12.9 % (11.8-14.3); White Blood Cell 10.8 10^3/uL (4.4-10.8)
[2024-03-19 06:27] LABS: Alanine Aminotransferase 45 U/L (7-40); Alkaline Phosphatase 61 U/L (46-116); Anion Gap 9 (5-15); BUN/Creatinine Ratio 16.2 (10.0-20.0); Blood Urea Nitrogen 17 mg/dL (9-23); Calcium 9.2 mg/dL (8.7-10.4); Carbon Dioxide 23 mmol/L (20-31); Chloride 106 mmol/L (98-107); Glucose 89 mg/dL (74-106); Magnesium 2.5 mg/dL (1.6-2.6); Potassium 3.7 mmol/L (3.5-5.1); Sodium 138 mmol/L (136-145)
[2024-03-19 06:28] LABS: Albumin 3.8 g/dL (3.2-4.8); Aspartate Aminotransferase 19 U/L (13-40); Total Protein 6.5 g/dL (5.7-8.2)
[2024-03-19] MEDS ORDERED: guaiFENesin-CODEINE Liq 5 ML UD PO PRN (09:15)
--- NOTE | 2024-03-19 09:51 | DVHPN2 ---
Progress Note Date Seen: Mar 19, 2024 Has the PT tested + for MRSA If YES, has PT been informed?: No Medical Necessity Reason Pt with a Central, PICC or Fol: No Objective vital signs Vital Sign Date Time Temp Pulse Resp B/P (MAP) Pulse Ox O2 Delivery O2 Flow Rate FiO2 03/19/24 09:00 90 16 102/62 (75) 93 03/19/24 08:00 97.6 97.6 03/19/24 08:00 Room Air* 0 96 21 Total Intake and Output 03/18/24 03/18/24 03/19/24 15:00 23:00 07:00 Intake Total 1445 ml 600 ml 450.0 ml Output Total 550 ml 400 ml Balance 1445 ml 50 ml 50.0 ml medications Current Medications Medications Dose Ordered Sig/An Route Start Time Stop Time Status Last Admin Dose Admin Albuterol 2.5 mg Q4HPRN PRN NEB 03/12/24 10:15 Budesonide 0.5 mg BID NEB 03/16/24 22:00 03/19/24 07:08 0.5 MG Fluticasone Propionate 50 mcg Q12HR EACHNOSTRI 03/16/24 22:00 03/19/24 07:42 50 MCG Cefepime HCl 50 ml @ 12.5 mls/hr Q8H IV 03/17/24 15:00 03/19/24 06:19 12.5 MLS/HR Vancomycin HCl 0 ml @ 0 mls/hr UD IV 03/17/24 13:30 Methylprednisolone Sodium Succinate 40 mg DAILY IV 03/18/24 10:00 03/19/24 07:41 40 MG Ipratropium [place] 0.5 mg Q6HPRN PRN NEB 03/17/24 18:00 03/18/24 22:21 0.5 MG Levalbuterol HCl 1.25 mg Q6HPRN PRN NEB 03/17/24 18:00 03/19/24 07:08 1.25 MG Morphine Sulfate 1 mg Q6HP PRN IV 03/17/24 20:00 03/17/24 21:56 1 MG Vancomycin HCl 200 ml @ 200 mls/hr Q12H IV 03/18/24 10:00 03/18/24 21:30 200 MLS/HR Guaifenesin/ Codeine Phosphate 5 ml Q4H PRN PO 03/19/24 09:15 laboratory and microbiology Laboratory Tests 03/19/24 05:22 Test 03/19/24 05:22 Range/Units Serum Glucose 89 74-106 mg/dL Problem List/Assessment/Plan Problem List/Assessment/Plan 03/19/24 afebrile, normotensive, much less neck pain, no sob, no crepitus no pre cordial "crunch", I WILL SIGN OFF ,PLEASE RECALL IF NEEDED Plan discussed with: Patient Dietary Evaluation Review Comments: Continue current plan of care Expected Outcomes/Goals: F/U in 3-5 days MIN ROSENBERG MD Mar 19, 2024 09:50
--- NOTE | 2024-03-19 13:30 | DVHPNRES ---
Progress Note Date Seen: Mar 19, 2024 Resident Creating Document: VERONICA MARX RESIDENT Has the PT tested + for MRSA If YES, has PT been informed?: No Medical Necessity Reason Pt with a Central, PICC or Fol: No Subjective Review of Systems Patient was seen and examined at bedside. He is feeling better. His voice is sounding a little better and less nasal. No surgical intervention needed, pneumomediastinum in improving. Continue Rocephin IV, continue azithromycin IV. Downgrade to med surge, possible discharge tomorrow Objective vital signs Vital Sign Date Time Temp Pulse Resp B/P (MAP) Pulse Ox O2 Delivery O2 Flow Rate FiO2 03/19/24 12:06 85 14 99 03/19/24 12:00 98.2 125/65 (85) 98.2 03/19/24 11:39 Room Air* 0 96 21 Total Intake and Output 03/18/24 03/18/24 03/19/24 15:00 23:00 07:00 Intake Total 1445 ml 600 ml 450.0 ml Output Total 550 ml 400 ml Balance 1445 ml 50 ml 50.0 ml medications Current Medications Medications Dose Ordered Sig/An Route Start Time Stop Time Status Last Admin Dose Admin Albuterol 2.5 mg Q4HPRN PRN NEB 03/12/24 10:15 03/19/24 12:00 2.5 MG Budesonide 0.5 mg BID NEB 03/16/24 22:00 03/19/24 07:08 0.5 MG Fluticasone Propionate 50 mcg Q12HR EACHNOSTRI 03/16/24 22:00 03/19/24 07:42 50 MCG Methylprednisolone Sodium Succinate 40 mg DAILY IV 03/18/24 10:00 03/19/24 07:41 40 MG Ipratropium [place] 0.5 mg Q6HPRN PRN NEB 03/17/24 18:00 03/19/24 12:00 0.5 MG Levalbuterol HCl 1.25 mg Q6HPRN PRN NEB 03/17/24 18:00 03/19/24 07:08 1.25 MG Morphine Sulfate 1 mg Q6HP PRN IV 03/17/24 20:00 03/17/24 21:56 1 MG Guaifenesin/ Codeine Phosphate 5 ml Q4H PRN PO 03/19/24 09:15 Ceftriaxone Sodium 50 ml @ 100 mls/hr DAILY@09 IV 03/20/24 09:00 Azithromycin 250 ml @ 125 mls/hr DAILY IV 03/19/24 13:15 Examination General: Awake, alert, comfortable appearing, in no acute distress. HEENT: Head is normocephalic and atraumatic. Pupils are equal, round, and reactive to light. Extraocular muscles are intact. No nasal discharge. No facial trauma. Intraoral exam shows moist mucous membranes with no tonsillar enlargement or exudate. Neck: Supple with no cervical lymphadenopathy No meningismus. No goiter. Heart: Regular rate without murmur, rub, or gallop. Lungs: Equal breath sounds bilaterally with no wheezing, rales, or rhonchi. There is no chest wall tenderness or instability. Abdomen: No external sign of injury. Bowel sounds are present. Abdomen is soft, nontender. No rebound, no guarding, no rigidity. There are no palpable masses. There is no flank pain on exam. Extremities: Strong peripheral pulses. There is no clubbing, no cyanosis, and no edema. Skin: No rash. Neurologic: Cranial nerves II-XII intact without motor, sensory, or cerebellar deficit, no asterixis. laboratory and microbiology Laboratory Tests 03/19/24 05:22 Test 03/19/24 05:22 Range/Units Serum Glucose 89 74-106 mg/dL Microbiology Date/Time Source Procedure Growth Status 03/17/24 12:45 Nose MRSA Screen - Final Complete Labs and/or images reviewed: Labs reviewed by me, Image(s) reviewed by me Problem List/Assessment/Plan Problem List/Assessment/Plan Acute asthma exacerbation--> improved --> Mild wheezing--improved --> Continue methylprednisolone 40 mg IV q.d. --> continue DuoNebs p.r.n. --> continue Budesonide --> Recommended follow up with air pollution inspector upon discharge Acute hypoxic respiratory failure --> on room air Atypical pneumonia vs viral pneumonia; more likely viral pneumonia --> Cough: intermittent; continue Dextromethorphan p.r.n. 03/18/2024 --> continue Ceftriaxone --> continue Azithromycin --> discontinue Vancomycin, Cefepime, Metronidazole Persistent Dyspnea --> monitor closely for hemodynamic compromise Extensive pneumomediastinum noted on CT lung 03/16/2024 --> 1. Discussed the patient with Dr. Cummings on the phone ( 03/16/2024) and he recommended a transfer to [facility] --> Surgeon Dr. Rodriguez consulted and informed (03/17/2024). He recommend upright chest x-ray at 7 am tomorrow. PS: Dr. Rodriguez is available by call for any worsening symptoms --> CT of neck and soft tissues: Revealed trachea was seen intact --> Gastrografin ( 03/17/24): 5 images of the thoracic esophagus containing Omnipaque 300 demonstrated in the esophagus to be intact with no extravasation and no findings to suggest obstruction at this time --> Per Dr. Rodriguez (03/18/2024): No surgical intervention needed. Echocardiogram revealed ejection fraction of 44%, survey chief recommended to follow with the an echo in three months Downgraded to [facility], possible discharge tomorrow Transfer to a [facility] cancelled Code status: full code Goal of care discussed for more than 32 minutes. Case plan discussed with Dr. Anguiano Plan discussed with: Patient, Other (RN) My Orders My Orders Orders - VERONICA MARX RESIDENT Procedure Category Date Status Time Soft Diet DIET 03/19/24 Transmitted Breakfast Guaifenesin-Codeine PHA 03/19/24 In Process Liquid (Robitussin/C 09:15 Transfer Orders XFER 03/19/24 Transmitted 10:00 Ceftriaxone 1gm/50ml PHA 03/20/24 In Process D5w (Rocephin) 09:00 Basic Metabolic Panel LAB 03/20/24 Verified 04:00 Azithromycin 500mg/ PHA 03/19/24 In Process 250ml (Zithromax 50 13:15 Dietary Evaluation Review Comments: Continue current plan of care Expected Outcomes/Goals: F/U in 3-5 days VERONICA MARX RESIDENT Mar 19, 2024 13:30
[2024-03-19] MEDS: AZITHROMYCIN 500MG/ 250ML 250 ML IV SCH (16:31)
--- NOTE | 2024-03-19 19:51 | DVHPN2 ---
Progress Note - Dictate Date Seen: Mar 19, 2024 Has the PT tested + for MRSA If YES, has PT been informed?: No Medical Necessity Reason Pt with a Central, PICC or Fol: No Subjective Patient seen and examined at bedside. Breathing comfortably on room air. Overnight events reviewed. vital signs Vital Sign Date Time Temp Pulse Resp B/P (MAP) Pulse Ox O2 Delivery O2 Flow Rate FiO2 03/19/24 18:20 96 Room Air* 0 21 03/19/24 16:00 18 03/19/24 16:00 98.0 65 130/75 (93) 98.0 Total Intake and Output 03/18/24 03/18/24 03/19/24 15:00 23:00 07:00 Intake Total 1445 ml 600 ml 450.0 ml Output Total 550 ml 400 ml Balance 1445 ml 50 ml 50.0 ml medications Current Medications Medications Dose Ordered Sig/An Route Start Time Stop Time Status Last Admin Dose Admin Albuterol 2.5 mg Q4HPRN PRN NEB 03/12/24 10:15 03/19/24 12:00 2.5 MG Budesonide 0.5 mg BID NEB 03/16/24 22:00 03/19/24 07:08 0.5 MG Fluticasone Propionate 50 mcg Q12HR EACHNOSTRI 03/16/24 22:00 03/19/24 07:42 50 MCG Methylprednisolone Sodium Succinate 40 mg DAILY IV 03/18/24 10:00 03/19/24 07:41 40 MG Ipratropium [place] 0.5 mg Q6HPRN PRN NEB 03/17/24 18:00 03/19/24 12:00 0.5 MG Levalbuterol HCl 1.25 mg Q6HPRN PRN NEB 03/17/24 18:00 03/19/24 07:08 1.25 MG Morphine Sulfate 1 mg Q6HP PRN IV 03/17/24 20:00 03/17/24 21:56 1 MG Guaifenesin/ Codeine Phosphate 5 ml Q4H PRN PO 03/19/24 09:15 Ceftriaxone Sodium 50 ml @ 100 mls/hr DAILY@09 IV 03/20/24 09:00 Azithromycin 250 ml @ 125 mls/hr DAILY IV 03/19/24 13:15 03/19/24 16:31 125 MLS/HR objective Gen.: Patient lying in bed in no apparent distress. Breathing on room air. Head: Normocephalic, atraumatic. Eyes: EOMI/PERRLA. Ears: Normal hearing. Normal anatomy. Neck/trachea: Trachea midline, supple. Nose: Normal external anatomy. Mouth: Moist mucous membranes. Chest: Decreased air entry bilaterally. No wheezing. No rhonchi. Cardiovascular: Positive S1, positive S2. Regular rate and rhythm. Abdomen: Positive bowel sounds in all 4 quadrants. Soft, non-tender, non- distended. : Deferred. Rectal: Deferred. Skin: Warm, dry. Intact. Extremities: 2+ radial pulses bilaterally. No lower extremity edema. Neuro: Awake, alert, oriented x3. No gross motor or sensory deficits. Cranial nerves II through XII intact. Gait not assessed. laboratory and microbiology Laboratory Tests 03/19/24 05:22 Test 03/19/24 05:22 Range/Units Serum Glucose 89 74-106 mg/dL Assessment/Plan Impression: Acute hypoxic respiratory failure Asthma exacerbation Dyspnea Wheezing Events: Breathing comfortably on room air. No respiratory distress. Continue bronchodilators Continue IV steroids Pulmicort BID Continue antibiotics IS. Flonase nasal spray. Cough suppression. PT. Patient is stable for downgrade from the pulmonary standpoint. Pneumomediastinum - no plan for surgical intervention. Voice hoarseness improving. Continue to monitor Labs and imaging reviewed. Rest of plan as noted below. Plan: Supplemental oxygen Titrate to keep O2 sats above 92%. Continue bronchodilators. Steroids Incentive spirometry Monitor renal function. Monitor electrolytes. Supplement as necessary. Monitor ins and outs. DVT prophylaxis. Prognosis: Poor given patient's multiple co-morbidities. Rest of plan per hospitalist and other consultants. Thank you Brandie Kenny NP, for allowing me to participate in this patient's care. Further recommendations will depend on the patient's clinical course. Please do not hesitate to contact me if you have any questions or concerns. This medical document was created using an electronic medical record system with [employer] system. Although these documentations are being carefully reviewed, there may still be some phonetic and typographical changes. The errors are purely typographical, due to imperfection on the software program, and do not reflect any compromise in the patient's medical care. Dietary Evaluation Review Comments: Continue current plan of care Expected Outcomes/Goals: F/U in 3-5 days Plan discussed with: Patient, Other (ANIBAL Lala) MAXIMO MOORE MD Mar 19, 2024 19:51
[2024-03-20] VITALS (7 sets, daily range): BP systolic 113–126; BP diastolic 63–77; PULSE 68–74; RESP 16–20; TEMP 97.8–98.7; O2SAT 97–100
[2024-03-20 07:02] LABS: Chloride 107 mmol/L (98-107); Potassium 3.9 mmol/L (3.5-5.1); Sodium 140 mmol/L (136-145)
[2024-03-20 07:03] LABS: Anion Gap 10 (5-15); Carbon Dioxide 23 mmol/L (20-31)
[2024-03-20 07:08] LABS: BUN/Creatinine Ratio 17.2 (10.0-20.0); Blood Urea Nitrogen 17 mg/dL (9-23); Glucose 91 mg/dL (74-106)
[2024-03-20] MEDS: cefTRIAXone 1GM/50ML D5W 50 ML IV SCH (08:33)
[2024-03-20] MEDS ORDERED: ALBUAER3 IN (12:38)
[2024-03-20] MEDS ORDERED: FLUT500M2 INH (12:38)
--- NOTE | 2024-03-20 19:38 | DVHDSRES ---
Discharge Summary Date of Admission Resident Creating Document: VERONICA MARX RESIDENT Mar 12, 2024 at 10:10 Date of Discharge: Mar 16, 2024 Admitting Diagnosis asthma exacerbation Labs/Diagnostic Data: Laboratory Results Test 03/20/24 05:21 03/19/24 05:22 03/18/24 05:12 03/17/24 17:02 Sodium Level 140 mmol/L (136-145) Potassium Level 3.9 mmol/L (3.5-5.1) Chloride Level 107 mmol/L (98-107) Carbon Dioxide Level 23 mmol/L (20-31) Anion Gap 10 (5-15) Blood Urea Nitrogen 17 mg/dL (9-23) Creatinine 0.99 mg/dL (0.700-1.30) Glomerular Filtration Rate Calc 111 mL/min (>90) BUN/Creatinine Ratio 17.2 (10.0-20.0) Serum Glucose 91 mg/dL (74-106) Calcium Level 9.0 mg/dL (8.7-10.4) White Blood Count 10.8 10^3/uL (4.4-10.8) Red Blood Count 5.14 10^6/uL (4.5-5.90) Hemoglobin 15.6 g/dL (13.5-17.5) Hematocrit 45.5 % (41.0-53.0) Mean Corpuscular Volume 88.6 fL (80.0-100.0) Mean Corpuscular Hemoglobin 30.3 pg (28.0-32.0) Mean Corpuscular Hemoglobin Concent 34.3 g/dL (32.0-36.0) Red Cell Distribution Width 12.9 % (11.8-14.3) Platelet Count 269 10^3/uL (140-450) Mean Platelet Volume 8.0 fL (6.9-10.8) Neutrophils (%) (Auto) 70.0 % (37.0-80.0) Lymphocytes (%) (Auto) 19.5 % (10.0-50.0) Monocytes (%) (Auto) 7.9 % (0.0-12.0) Eosinophils (%) (Auto) 2.5 % (0.0-7.0) Basophils (%) (Auto) 0.1 % (0.0-2.0) Neutrophils # (Auto) 7.6 10 ^3/uL (1.6-8.6) Lymphocytes # (Auto) 2.1 10 ^3/uL (0.4-5.4) Monocytes # (Auto) 0.9 10 ^3/uL (0-1.3) Eosinophils # (Auto) 0.3 10 ^3/uL (0-0.8) Basophils # (Auto) 0 10 ^3/uL (0-0.2) Nucleated Red Blood Cells 0.1 % Magnesium Level 2.5 mg/dL (1.6-2.6) Total Bilirubin 1.0 mg/dL (0.2-1.0) Aspartate Amino Transferase (AST) 19 U/L (13-40) Alanine Aminotransferase (ALT) 45 U/L (7-40) Alkaline Phosphatase 61 U/L (46-116) Total Protein 6.5 g/dL (5.7-8.2) Albumin 3.8 g/dL (3.2-4.8) Random Vancomycin Level 4.4 ug/mL (5-10) Prothrombin Time 11.5 sec (9.3-11.8) Prothrombin Time INR 1.09 (0.9-1.15) Activated Partial Thromboplast Time 27.4 SEC (24.5-34.5) Test 03/16/24 18:46 03/16/24 17:52 Troponin I High Sensitivity < 3 ng/L (</=54) B-Type Natriuretic Peptide 1.23 pg/mL (0-100) Influenza Type A Antigen Negative (Negative) Influenza Type B Antigen Negative (Negative) SARS-CoV-2 Antigen (Rapid) Negative (NEGATIVE) Other Laboratory Tests 03/20/24 05:21 03/19/24 05:22 Brief Hx & Hospital Course: This is 23-year-old male with past medical history of asthma who presented to the ED via EMS with a chief complaint of shortness of breath. Patient reported progressive shortness despite using his rescue inhaler. With the persistent symptoms, patient decided to come to the ED for further evaluation and treatment. The patient reported symptom is associated with productive cough. According to the patient, he was last admitted 2 months ago for similar clinical scenario. And he also mentioned that he uses his rescue inhaler daily beclomethasone daily. Patient has not seen a entry level mechanical engineer ever and he currently does not have a PCP. Denies fever, chills, chest pain, or other acute symptoms. Denies tobacco, illicit drug, or ETOH use. In the ED, his respiratory rate was 26 cpm, HR: 132. Received 8L of oxygen via simple mask. Past Medical History:Asthma Past Surgical History:Denies Family History:Reviewed, non-contributory to the management of this case. Past Social History:The patient lives at home, denies smoking, alcohol or illicit drugs abuse. During patient's hospitalization, initially he improved in regards to his oxygen requirement, he was weaned down to nasal cannula at 2 L, however, he kept having intermittent wheezing on desaturations, he also stated having significant neck pain and chest pain, this persisted for the next following days, we were unable to titrate him off the oxygen, we will perform a CT scan of the chest with contrast, which ruled out a pulmonary embolism however it did mention having an extensive pneumomediastinum along with possible tracheal injury versus esophageal injury. At the time we consulted surgery stat with the recommended higher level of care, we started the process to transfer the patient to different facilities, he was denied due to not needing any intervention, we reconsulted surgery, order a Gastrografin test and a CT scan of the neck and soft tissues which revealed due to trachea was intact and esophagus was also normal during Gastrografin test. During this time patient was also placed on broad-spectrum antibiotics, and we kept him on DuoNebs as well as glucocorticoids. Patient later demonstrated significant clinical improvement, the initial crepitus found on his neck was later diminished, we were able to remove nasal cannula on the last two days of his hospitalization he was on room air without any difficulty. Patient currently denies any significant chest pain, shortness of breath, dizziness, lightheadedness, abdominal pain, nausea, vomiting, he is currently tolerating diet, ambulatory without assistance. Physical examination as below: General: Awake, alert, comfortable appearing, in no acute distress. HEENT: Head is normocephalic and atraumatic. Pupils are equal, round, and reactive to light. Extraocular muscles are intact. No nasal discharge. No facial trauma. Intraoral exam shows moist mucous membranes with no tonsillar enlargement or exudate. Neck: Supple with no cervical lymphadenopathy No meningismus. No goiter. Heart: Regular rate without murmur, rub, or gallop. Lungs: Equal breath sounds bilaterally with no wheezing, rales, or rhonchi. There is no chest wall tenderness or instability. Abdomen: No external sign of injury. Bowel sounds are present. Abdomen is soft, nontender. No rebound, no guarding, no rigidity. There are no palpable masses. There is no flank pain on exam. Extremities: Strong peripheral pulses. There is no clubbing, no cyanosis, and no edema. Skin: No rash. Neurologic: Cranial nerves II-XII intact without motor, sensory, or cerebellar deficit, no asterixis. Discharge diagnosis: Asthma exacerbation, extensive pneumomediastinum, ruled out tracheal injury or esophageal injury Discharge plan: Patient will be DC home on continue home medications as prescribed. Patient will continue Advair high dose b.i.d. Continue albuterol inhaler as a rescue inhaler. Follow up in this clinic next week, follow with entry level mechanical engineer, try to arrange for a PCP. Counseled on lifestyle modifications, avoid smoking, drugs, alcohol. Counseled on medical compliance and adherence. FU with project facilitator and repeat echocardio in 3 months given dilated LV and EF of 44% Patient verbalized understanding, we will also discuss the plan with his mother, we spent over 30 minutes explaining the plan. Case was discussed with Dr. Anguiano. Consults/Reason for consult Entry Level Mechanical Engineer was consulted due to asthma exacerbation Surrgeu was consulted due to pneumomediastinum Operations or Procedures [place] [address] Ph: [phone] DIAGNOSTIC IMAGING Diagnostic Imaging Report : [id number] Signed with Cyndee PATIENT: EMMA HORTON ACCT: [id number] UNIT: [id number] : 2000 LOC: CENTRAL ROOM / BED: [facility] [place] / A AGE / SEX: 23 / M ADM STATUS: ADM IN SERVICE [id number] ORDERING PHYSICIAN: PRAMOD MEDEROS RESIDENT PROCEDURE(s): CXICT - CHEST WITH CONTRAST REASON: ESOPHAGEAL RUPTURE ORAL CONTRAST PER RAD ORDER NUMBER(s): [id number], ACCESSION NUMBER(s): [id number] ADDENDUM ADDENDUM # [address] chest with oral contrast only. ORIGINAL REPORT INDICATION: ESOPHAGEAL RUPTURE ORAL CONTRAST PER RAD COMPARISON: None TECHNIQUE: Multidetector CTA of the chest was performed of the chest with 100 cc of intravenous contrast. PULMONARY ANGIOGRAPHY PROTOCOL was utilized using a bolus-tracking technique centered on the main pulmonary artery. Axial, coronal and sagittal multiplanar and MIP reformats were performed. Radiation Dose Information: CT Dose: CTDI volume is 9.29 mGy. Dose-length product is 444.03 mGy*cm The dose indicators for CT are the volume Computed Tomography (CT) Dose Index (CTDIvol) and the Dose Length Product (DLP), and are measured in units of mGy and mGy-cm, respectively. These indicators are not patient dose, but values generated from the CT scanner acquisition factors. The report includes radiation exposure data for exposures received during this examination. Findings: Pulmonary artery: Normal caliber of the pulmonary artery. No large central or large segmental pulmonary embolism. Lower neck: Normal thyroid. Lungs: No focal consolidation, pulmonary mass, or suspicious pulmonary nodule. Pneumomediastinum Heart/Vascular Structures: Normal heart size. Normal caliber and enhancement of the aorta. Lymph Nodes: No adenopathy Pleura: No pleural effusion or significant pneumothorax. Musculoskeletal: No acute osseous abnormality. Upper abdomen: Limited portions of the upper abdomen are unremarkable. Contrast noted in the stomach. IMPRESSION: 1. No pulmonary embolism. 2. Pneumomediastinum. 3. No contrast extravasation in the surrounding soft tissues can not rule out submucosal tear. HS:Y ATED BY: JOSEF PADILLA MD DICTATED DATE/TIME: 03/20/24 1023 SIGNED BY: JOSEF PADILLA MD SIGNED DATE/TIME: 03/20/24 1023 CC: INDICATION: ESOPHAGEAL RUPTURE ORAL CONTRAST PER RAD COMPARISON: None TECHNIQUE: Multidetector CTA of the chest was performed of the chest with 100 cc of intravenous contrast. PULMONARY ANGIOGRAPHY PROTOCOL was utilized using a bolus-tracking technique centered on the main pulmonary artery. Axial, coronal and sagittal multiplanar and MIP reformats were performed. Radiation Dose Information: CT Dose: CTDI volume is 9.29 mGy. Dose-length product is 444.03 mGy*cm The dose indicators for CT are the volume Computed Tomography (CT) Dose Index (CTDIvol) and the Dose Length Product (DLP), and are measured in units of mGy and mGy-cm, respectively. These indicators are not patient dose, but values generated from the CT scanner acquisition factors. The report includes radiation exposure data for exposures received during this examination. Findings: Pulmonary artery: Normal caliber of the pulmonary artery. No large central or large segmental pulmonary embolism. Lower neck: Normal thyroid. Lungs: No focal consolidation, pulmonary mass, or suspicious pulmonary nodule. Pneumomediastinum Heart/Vascular Structures: Normal heart size. Normal caliber and enhancement of the aorta. Lymph Nodes: No adenopathy Pleura: No pleural effusion or significant pneumothorax. Musculoskeletal: No acute osseous abnormality. Upper abdomen: Limited portions of the upper abdomen are unremarkable. Contrast noted in the stomach. IMPRESSION: 1. No pulmonary embolism. 2. Pneumomediastinum. 3. No contrast extravasation in the surrounding soft tissues can not rule out submucosal tear. HS:Y ATED BY: DERRICK FLORES Jr., DO DICTATED DATE/TIME: 03/17/241648 SIGNED BY: DERRICK FLORES Jr., SIGNED DATE/TIME: 03/17/241648 CC: [place] [address] Ph: [phone] DIAGNOSTIC IMAGING Diagnostic Imaging Report : [id number] Signed with Cyndee PATIENT: EMMA HORTON ACCT: [id number] UNIT: [id number] : 2000 LOC: CENTRAL ROOM / BED: [facility] / A AGE / SEX: 23 / M ADM STATUS: ADM IN SERVICE 1447 ORDERING PHYSICIAN: PRAMOD MEDEROS RESIDENT PROCEDURE(s): ESOPHG - ESOPHAGUS GASTROGRAFIN SWALLOW REASON: esophageal rupture ORDER NUMBER(s): [id number], ACCESSION NUMBER(s): [id number] ADDENDUM ADDENDUM # 1 Overhead spot images were obtained additionally. ORIGINAL REPORT Fluoroscopic Esophagram Date: 03/17/2024 04:15 PM Clinical History: esophageal rupture Comparison: None Fluoroscopy time: Not given Technique: 5 Fluoroscopic images obtained of the thoracic esophagus with omnipaque 300 consumed orally. Procedure and Findings: An AP bead preparer view of the chest and upper abdomen was obtained. The visualized lungs are clear and cardiomediastinal silhouette is within normal limits. The visualized upper abdomen appears unremarkable. The patient self-administered thick and thin barium under fluoroscopic evaluation. Spot images were obtained. Overhead MORALES and PA views of the abdomen were obtained at the conclusion of the study. Esophageal peristalsis was normal. Contrast flowed through the esophagus without impediment. There is no hiatal hernia or gastroesophageal reflux. There is no esophageal mucosal irregularity. No evidence for contrast extravasation to suggest a leak or perforation. The patient tolerated the procedure well. IMPRESSION: 1. 5 images of the thoracic esophagus containing Omnipaque 300 demonstrated in the esophagus to be intact with no extravasation and no findings to suggest obstruction at this time. HS:Y ATED BY: JOSEF PADILLA MD DICTATED DATE/TIME: 03/20/24 1023 SIGNED BY: JOSEF PADILLA MD SIGNED DATE/TIME: 03/20/24 1023 CC: Fluoroscopic Esophagram Date: 03/17/2024 04:15 PM Clinical History: esophageal rupture Comparison: None Fluoroscopy time: Not given Technique: 5 Fluoroscopic images obtained of the thoracic esophagus with omnipaque 300 consumed orally. Procedure and Findings: An AP bead preparer view of the chest and upper abdomen was obtained. The visualized lungs are clear and cardiomediastinal silhouette is within normal limits. The visualized upper abdomen appears unremarkable. The patient self-administered thick and thin barium under fluoroscopic evaluation. Spot images were obtained. Overhead MORALES and PA views of the abdomen were obtained at the conclusion of the study. Esophageal peristalsis was normal. Contrast flowed through the esophagus without impediment. There is no hiatal hernia or gastroesophageal reflux. There is no esophageal mucosal irregularity. No evidence for contrast extravasation to suggest a leak or perforation. The patient tolerated the procedure well. IMPRESSION: 1. 5 images of the thoracic esophagus containing Omnipaque 300 demonstrated in the esophagus to be intact with no extravasation and no findings to suggest obstruction at this time. HS:Y ATED BY: DERRICK FLORES Jr., DO DICTATED DATE/TIME: 03/17/241640 SIGNED BY: DERRICK FLORES Jr., SIGNED DATE/TIME: 03/17/241640 CC: [place] [address] Ph: [phone] DIAGNOSTIC IMAGING Diagnostic Imaging Report : [id number] Signed PATIENT: EMMA HORTON ACCT: [id number] UNIT: [id number] : 2000 LOC: MYRNA IN ICU ROOM / [facility]ED: [facility] / A AGE / SEX: 23 / M ADM STATUS: ADM IN SERVICE 1720 ORDERING PHYSICIAN: VERONICA MARX RESIDENT PROCEDURE(s): ECIDC - ECHO 2D MODE CARDIAC DOP REASON: chest pain, pneumomediastinum ORDER NUMBER(s): [id number], ACCESSION NUMBER(s): [id number] APPROVED REPORT EXAM: Two-dimensional and M-mode echocardiogram with Doppler and color Doppler. Blood Pressure: 116/74 mmHg INDICATION Chest Pain RISK FACTORS Height: 5'8", Weight: 164 DIMENSIONS LVDd 4.5 (3.8-5.7cm) LA (2D) 3.2 (1.9-4.0cm) Aortic Root 2.9 (2.0- 3.7cm) LVDs 3.4 (2.5-4.0cm) LA (MM) (1.9-4.0cm) Aortic Cusp Exc 2.0 (1.5- 2.0cm) EF (%) 50.0 (55-70%) Rt. Atrium 3.2 (1.9-4.0cm) Asc. Aorta 2.8 cm IVSd 0.8 (0.7-1.1cm) RV (D) 3.1 (1.8-2.4cm) PWd 0.9 (0.7-1.1cm) Mitral Valve Mitral Mitral Stenosis E/A ratio 0.0 2D MVA cm2 Aortic Valve Aortic Valve Aortic Stenosis V1 0.72m/s AO Mean GR. 3mmHg V2 1.10m/s AO Peak GR. 5mmHg LVOT Diameter 2.2 (1.8-2.4cm) Doppler AROLDO 2.49cm2 Pulmonic Valve V2 0.59m/s Conclusion MILD LV GLOBAL HYPOKINESIS AND SLIGHTLY DILATED LV LV EJECTION FRACTION IS IN RANGE OF 44% AND IS REDUCED NORMAL VALVES NO EFFUSION SUGGEST TO REPEAT ECHO AFTER 3 MONTHS TO EVALUATE LV EJECTION FRACTION SIGNED BY: DAE CHENEY MD SIGNED DATE/TIME: 03/18/24 0243 CC: [place] [address] Ph: [phone] DIAGNOSTIC IMAGING Diagnostic Imaging Report : [id number] Signed PATIENT: EMMA HORTON ACCT: [id number] UNIT: [id number] : 2000 LOC: CENTRAL ROOM / BED: [facility] / AGE / SEX: 23 / M ADM STATUS: ADM IN SERVICE 1634 ORDERING PHYSICIAN: MAXIMO MOORE MD PROCEDURE(s): CTACH - CT ANGIO CHEST CONTRAST REASON: Dyspnea on exertion, Hypoxia on exertion r/o PE ORDER NUMBER(s): [id number], ACCESSION NUMBER(s): [id number] CTA Chest with intravenous contrast INDICATION: Dyspnea on exertion, Hypoxia on exertion r/o PE COMPARISON: None TECHNIQUE: Multidetector spiral CTA of the chest was performed of the chest with intravenous contrast. PULMONARY ANGIOGRAPHY PROTOCOL was utilized using a bolus- tracking technique centered on the main pulmonary artery. Axial, coronal and sagittal multiplanar and MIP reformats were performed. CONTRAST: Type of contrast: Omni 350 Contrast injected: 100 ml Radiation dose : Chest: CTDI volume is 44 mGy. Dose-length product is 355.09 mGy*cm The dose indicators for CT are the volume computed Tomography (CT) dose Index (CTDIvol) and the dose Length product (DLP), and are measured in units of mGy and mGy-cm, respectively. These indicators are not patient dose, but values generated from the CT scanner acquisition factors. The report includes radiation exposure data for exposures received during this examination. Findings: Pulmonary artery: No pulmonary embolism Lower neck: Pneumomediastinum extends into the lower neck. Lungs: There is trace pleural air. No suspicious nodule or consolidation. Heart/Vascular Structures: Normal heart size. No pericardial effusion. Lymph Nodes: No adenopathy Pleura: Trace pleural air as above. Musculoskeletal: No acute osseous abnormality. Soft tissues: Extensive pneumomediastinum extending into the lower neck Upper abdomen: Limited portions of the upper abdomen are unremarkable. IMPRESSION: 1. No pulmonary embolism. 2. Extensive pneumomediastinum extending into the lower neck. Trace pleural air likely related to the same process. Consider esophageal or tracheal injury. Clinical correlation and continued follow-up is recommended. HS:Y ATED BY: CHRIS JONES MD DICTATED DATE/TIME: 03/16/241819 SIGNED BY: CHRIS JONES MD SIGNED DATE/TIME: 03/16/241819 CC: [place] [address] Ph: [phone] DIAGNOSTIC IMAGING Diagnostic Imaging Report : [id number] Signed PATIENT: EMMA HORTON ACCT: [id number] UNIT: [id number] : 2000 LOC: CENTRAL ROOM / BED: [facility] / A AGE / SEX: 23 / M ADM STATUS: ADM IN SERVICE 1033 ORDERING PHYSICIAN: VERONICA MARX RESIDENT PROCEDURE(s): NKICT - NECK WITHOUT CONTRAST REASON: assess extent of pneumomediastinum, tracheal injury ORDER NUMBER(s): [id number], ACCESSION NUMBER(s): [id number] CT NECK WITHOUT CONTRAST Clinical History: assess extent of pneumomediastinum, tracheal injury Comparison: CT CT ANGIO CHEST CONTRAST on DOS: 03/16/24 Technique: Multiple contiguous CT images of the neck were obtained without intravenous contrast. These images were reformatted degenerate coronal and sagittal reconstructions. Radiation Dose Information: CT Dose: CTDI volume is 19.73 mGy. Dose-length product is 529.48 mGy*cm Findings: Evaluation of the soft tissues of the neck is limited without intravenous contrast. There is moderate amount of air seen tracking in the prevertebral soft tissues and along the right and left margins of the trachea and hypopharynx extending superiorly to the level of the oropharynx. There is air tracking inferiorly into the superior mediastinum. The visualized trachea appears intact with smooth oval contour. The glottis appear symmetric. The hypopharynx and oropharynx grossly appear unremarkable. There is no evidence of a soft tissue neck mass or pathologically enlarged cervical lymph nodes. The visualized intracranial contents appear within normal limits. The lung apices are clear. The visualized paranasal sinuses and mastoid air cells are also clear. The osseous structures appear within normal limits. Impression: 1. There is moderate amount of air seen tracking in the prevertebral soft tissues and along the right and left margins of the trachea and hypopharynx extending superiorly to the level of the oropharynx and inferiorly into the superior mediastinum. 2. The visualized upper trachea appears intact with smooth oval contour. Glottis appear symmetric. HS:Y ATED BY: FABIEN CHENEY MD DICTATED DATE/TIME: 03/17/241207 SIGNED BY: FABIEN CHENEY MD SIGNED DATE/TIME: 03/17/241207 CC: Condition at Discharge: Good Final Diagnosis/Problems List Acute asthma exacerbation Acute hypoxic respiratory failure Atypical pneumonia vs viral pneumonia; more likely viral pneumonia Extensive pneumomediastinum, likely due to persistent coughing, ruled out esophageal vs tracheal injury Discharge Disposition: Home Discharge Instruct/Medications Diet: Regular, See Comment Diet comment: npo Activity: No Restrictions, As Tolerated Follow Up/Referral: FU in DC clinic, entry level mechanical engineer and pcp Medications: continue home meds continue advair and albuterol as needed Discharge Statement: "Patient was advised to return to the ER or call 911 if any headaches, dizziness, shortness of breath, chest pain, abdominal pain, bleeding, fevers, or worsening of medical condition. Patient was counseled about treatment plan, medications, possible side effects, patientverbalized understanding. All questions were answered to the best of my ability. This discharge took greater then 30 minutes in planning, reviewing documentation, counseling the patient, and discussing with other team members." ASSESSMENT ASSESSMENT Assessment asthma exacerbation extensive pneumomediastinum VERONICA MARX RESIDENT Mar 20, 2024 19:38
--- NOTE | 2024-03-20 20:54 | DVHPN2 ---
Progress Note - Dictate Date Seen: Mar 20, 2024 Has the PT tested + for MRSA If YES, has PT been informed?: No Medical Necessity Reason Pt with a Central, PICC or Fol: No Subjective Patient seen and examined at bedside. Breathing comfortably on room air. Overnight events reviewed. vital signs Vital Sign Date Time Temp Pulse Resp B/P (MAP) Pulse Ox O2 Delivery O2 Flow Rate FiO2 03/20/24 11:56 98.7 74 16 126/63 (84) 98 98.7 03/20/24 10:05 Room Air* 0 21 Total Intake and Output 03/19/24 03/19/24 03/20/24 15:00 23:00 07:00 Intake Total 1250 ml 525 ml Output Total 400 ml Balance 850 ml 525 ml objective Gen.: Patient lying in bed in no apparent distress. Breathing on room air. Head: Normocephalic, atraumatic. Eyes: EOMI/PERRLA. Ears: Normal hearing. Normal anatomy. Neck/trachea: Trachea midline, supple. Nose: Normal external anatomy. Mouth: Moist mucous membranes. Chest: Decreased air entry bilaterally. No wheezing. No rhonchi. Cardiovascular: Positive S1, positive S2. Regular rate and rhythm. Abdomen: Positive bowel sounds in all 4 quadrants. Soft, non-tender, non- distended. : Deferred. Rectal: Deferred. Skin: Warm, dry. Intact. Extremities: 2+ radial pulses bilaterally. No lower extremity edema. Neuro: Awake, alert, oriented x3. No gross motor or sensory deficits. Cranial nerves II through XII intact. Gait not assessed. laboratory and microbiology Laboratory Tests 03/20/24 05:21 03/19/24 05:22 Test 03/20/24 05:21 Range/Units Serum Glucose 91 74-106 mg/dL Assessment/Plan Impression: Acute hypoxic respiratory failure Asthma exacerbation Dyspnea Wheezing Events: Breathing comfortably on room air. No respiratory distress. Continue bronchodilators Continue steroids Pulmicort BID Continue antibiotics IS. Flonase nasal spray. PT. Pneumomediastinum - no plan for surgical intervention. Voice hoarseness improving. Continue to monitor Patient is stable for discharge from the pulmonary standpoint. Follow up as outpatient in the [facility]. Disposition per hospitalist. Labs and imaging reviewed. Rest of plan as noted below. Plan: Supplemental oxygen PRN Titrate to keep O2 sats above 92%. Continue bronchodilators. Steroids Incentive spirometry Monitor renal function. Monitor electrolytes. Supplement as necessary. Monitor ins and outs. DVT prophylaxis. Prognosis: Poor given patient's multiple co-morbidities. Rest of plan per hospitalist and other consultants. Thank you Brandie Kenny, DONA, for allowing me to participate in this patient's care. Further recommendations will depend on the patient's clinical course. Please do not hesitate to contact me if you have any questions or concerns. This medical document was created using an electronic medical record system with [employer] dictation system. Although these documentations are being carefully reviewed, there may still be some phonetic and typographical changes. The errors are purely typographical, due to imperfection on the software program, and do not reflect any compromise in the patient's medical care. Dietary Evaluation Review Comments: Continue current plan of care Expected Outcomes/Goals: F/U in 3-5 days Plan discussed with: Patient, Other (ANIBAL López) MAXIMO MOORE MD Mar 20, 2024 20:54
== END 2024-03-20 14:50 | disposition home or self-care (01) | DRG 139 ==
LOC: EDBD 06:38 → ER 06:38 → OVERFLOW 10:10 → CENTRAL 17:30 → DOU IN ICU 03-17 13:25 → TELE-CENTR 03-19 13:53 → CENTRAL 03-19 14:58
PROVIDERS: ADMIT Student in an Organized Health Care Education/Training Program; ATTEND Student in an Organized Health Care Education/Training Program
DX: J12.9 Viral pneumonia, unspecified (principal); J96.21 Acute and chronic respiratory failure with hypoxia; J45.901 Unspecified asthma with (acute) exacerbation; Z20.822 Contact with and (suspected) exposure to COVID-19; Z79.899 Other long term (current) drug therapy; Z91.018 Allergy to other foods
CPT/HCPCS: 36415; 70490; 71045; 71260; 71275; 74220; 80048; 80053; 80202; 83735; 83880; 84484; 85025; 85610; 85730; 87081; 87426; 87804; 93306; 94640; 94644; 99291; G0378; J2405; J3490